=== PATIENT | male | born 1960 | race Caucasian/White ===

== ENCOUNTER → 2017-01-12 | Outpatient (CLI) | payer BC ==
[~2017-01-12] MED LIST: CITA40TA4 PO; CYM60 PO; GABA1CAP5 PO; HYDR-5688 PO; HYDR25TA5 PO; LEVO88TA PO; LEVO88TA22 PO; LISI10TA PO; LSN20 PO; LYR100 PO; MULT-506 PO; PANT40TA PO; RANI300T2 PO; ZLF/100 PO
[2017-01-12 14:09] LABS: LYME DISEASE AB IGG NEG (NEG)
[2017-01-12 14:10] LABS: LYME DISEASE AB IGM POS (NEG)
[2017-01-18 11:07] LABS: 18KDIGG BAND NONREACTIVE (NONREACTIVE); 23KDIGG BAND REACTIVE (NONREACTIVE); 23KDIGM BAND REACTIVE (NONREACTIVE); 28KDIGG BAND NONREACTIVE (NONREACTIVE); 30KDIGG BAND REACTIVE (NONREACTIVE); 39KDIGG BAND REACTIVE (NONREACTIVE); 39KDIGM BAND NONREACTIVE (NONREACTIVE); 41KDIGG BAND REACTIVE (NONREACTIVE); 41KDIGM BAND NONREACTIVE (NONREACTIVE); 45KDIGG BAND REACTIVE (NONREACTIVE); 58KDIGG BAND REACTIVE (NONREACTIVE); 66KDIGG BAND REACTIVE (NONREACTIVE); 93KDIGG BAND NONREACTIVE (NONREACTIVE)
== END | disposition home or self-care (01) ==
LOC: C.LABPBG 10:03
PROVIDERS: ATTEND Neuromusculoskeletal Medicine & OMM
DX: R53.81 Other malaise (principal); W57.XXXS Bitten or stung by nonvenomous insect and other nonvenomous arthropods, sequela

== ENCOUNTER → 2017-02-02 | Outpatient (CLI) | payer BC ==
[2017-02-02 13:21] LABS: ALT/SGPT 20 U/L (12-78); BLOOD UREA NITROGEN 23 mg/dl (7-18); BUN/CREATININE RATIO 19.2 (10-20); CALCIUM 9.2 mg/dl (8.5-10.1); CARBON DIOXIDE 25 mmol/L (21-32); CHLORIDE 104 mmol/L (98-107); GLUCOSE 141 mg/dl (70-99); POTASSIUM 4.3 mmol/L (3.5-5.1); SODIUM 138 mmol/L (136-145)
[2017-02-02 13:24] LABS: ALB/GLOB RATIO 0.8 (0.9-2); ALKALINE PHOSPHATASE 80 U/L (45-117); AST/SGOT 33 U/L (15-37)
== END | disposition home or self-care (01) ==
LOC: C.LABPBG 11:23
PROVIDERS: ATTEND Neuromusculoskeletal Medicine & OMM
DX: R53.83 Other fatigue (principal)

== ENCOUNTER 2017-04-12 18:54 | Inpatient (IN) | payer BC ==
[~2017-04-12] VITALS: Ht 180.3 cm; Wt 159.4 kg
[~2017-04-12 18:54] MED LIST changes: -CITA40TA4 PO; -CYM60 PO; -GABA1CAP5 PO; -HYDR-5688 PO; -LEVO88TA PO; -LSN20 PO; -LYR100 PO
--- NOTE | 2017-04-12 20:05 | EMERGENCY ROOM VISIT NOTE ---
History Report prepared by Belen: Maren West Under the Supervision of: Dr. Torey Ferrell M.D. First contact with patient: 19:13 Chief Complaint: MENTAL HEALTH EVALUATION Stated Complaint: VOLUNTARY PAIN FROM NECK DOWN, BURNING/SHARP History of Present Illness The patient is a 56 year old male who presents to the Emergency Room with complaints of constant suicidal ideation today. Per nursing staff, the patient was being seen by a PA-C at [facility] when he made suicidal statements and told the PA that he wanted to overdose on pain medication because a gun would be too messy. He has a history of neuropathy and chronic pain and noted that he wanted to commit suicide to end the pain. The patient has been accepted to [address] [place] [address] pending medical clearance. The patient states that he is in chronic pain from cervical nerve damage and his pain medication is not working. He notes that he had a trach in for 5 years and has a partially collapsed airway. He notes a history of Lyme disease. The patient complains of being off balance over the last few months. He reports that he takes Oxycodone for his pain and has made his 15 day bottle last 1 month. He notes that he does not like to take the Oxycodone and takes Gabapentin. Source of History: patient Onset: today Position: other (mental health) Quality: other (suicidal ideation) Timing: constant Note: Pt complains of being off balance. Review of Systems See HPI for pertinent positives & negatives. A total of 10 systems reviewed and were otherwise negative. Past Medical & Surgical Medical Problems: (1) Hyperlipidemia (2) Neuropathy Family History No pertinent family history stated. Social History Smoking Status: Never Smoker Marital Status: single Occupation Status: employed Current/Historical Medications Scheduled Citalopram (Citalopram Hydrobromide), 40 MG PO QAM Gabapentin (Neurontin), 400 MG PO TID Hydrochlorothiazide (Hydrochlorothiazide), 25 MG PO DAILY Levothyroxine Sodium (Synthroid), 88 MCG PO QAM Lisinopril (Lisinopril), 20 MG PO QAM Multivitamin (Multivitamin), 1 TAB PO DAILY Pantoprazole (Protonix), 40 MG PO DAILY Ranitidine (Zantac), 300 MG PO HS Allergies Coded Allergies: Codeine (Verified Allergy, Severe, ANAPHYLAXIS, TOLERATES PERCOCET/ MORPHINE, 04/12/17) Penicillins (Verified Allergy, Mild, RASH, 04/12/17) Physical Exam Vital Signs Date Time Temp Pulse Resp B/P (MAP) Pulse Ox O2 Delivery O2 Flow Rate FiO2 04/12/17 20:53 87 04/12/17 20:20 94 Room Air 04/12/17 20:20 94 Room Air 04/12/17 20:19 86 20 133/65 94 Room Air 04/12/17 19:05 37.0 91 19 142/75 95 Room Air Physical Exam GENERAL: Patient is a healthy-appearing well-nourished male HEAD: Normocephalic atraumatic EYES: Ocular movements intact pupils equal and react to light OROPHARYNX mucous membranes are moist no exudates present no erythema or edema present, old trach scar healed well NECK: Supple no nuchal rigidity CHEST: Good equal expansion LUNGS: Clear and equal to auscultation CARDIAC: Normal S1 and S2 ABDOMEN: Soft nontender no guarding BACK: No CVA tenderness EXTREMITIES: No pain upon palpation normal muscle strength in all groups no clubbing cyanosis or edema NEURO: Patient is following commands and answering questions appropriately. Alert and oriented x3 Cranial Nerves 2-12 grossly intact Medical Decision & Procedures ER Provider Diagnostic Interpretation: X-ray results as stated below per interpretation by me and the radiologist: CHEST ONE VIEW PORTABLE FINDINGS: Stable cardiomegaly. Diaphragms are smooth. Lungs are clear. IMPRESSION: Stable cardiomegaly. No acute process. The lungs are clear. The above report was generated using voice recognition software. It may contain grammatical, syntax or spelling errors. Electronically signed by: Andrey Sebastian M.D. 04/12/2017 8:05 PM Dictated Date/Time: 04/12/2017 8:04 PM Laboratory Results 04/12/17 20:00 Red Blood Count 4.63, Mean Corpuscular Volume 89.2, Mean Corpuscular Hemoglobin 32.0, Mean Corpuscular Hemoglobin Concent 35.8, Mean Platelet Volume 9.7, Neutrophils (%) (Auto) 61.5, Lymphocytes (%) (Auto) 27.8, Monocytes (%) (Auto) 5.7, Eosinophils (%) (Auto) 4.2, Basophils (%) (Auto) 0.6, Neutrophils # (Auto) 5.73, Lymphocytes # (Auto) 2.59, Monocytes # (Auto) 0.53, Eosinophils # (Auto) 0.39, Basophils # (Auto) 0.06 04/12/17 20:00 Test 04/12/17 19:20 04/12/17 20:00 04/12/17 20:50 Urine Color YELLOW Urine Appearance CLEAR (CLEAR) Urine pH 5.0 (4.5-7.5) Urine Specific [place] 1.016 (1.000-1.030) Urine Protein NEG (NEG) Urine Glucose (UA) NEG (NEG) Urine Ketones NEG (NEG) Urine Occult Blood NEG (NEG) Urine Nitrite NEG (NEG) Urine Bilirubin NEG (NEG) Urine Urobilinogen NEG (NEG) Urine Leukocyte Esterase NEG (NEG) Urine Opiates Screen POS (NEG) Urine Methadone, Qualitative NEG (NEG) Urine Barbiturates NEG (NEG) Urine Phencyclidine (PCP) Level NEG (NEG) Ur Amphetamine/Methamphetamine NEG (NEG) MDMA (Ecstasy) Screen NEG (NEG) Urine Benzodiazepines Screen NEG (NEG) Urine Cocaine Metabolite NEG (NEG) Urine Marijuana (THC) NEG (NEG) White Blood Count 9.32 K/uL (4.8-10.8) Red Blood Count 4.63 M/uL (4.7-6.1) Hemoglobin 14.8 g/dL (14.0-18.0) Hematocrit 41.3 % (42-52) Mean Corpuscular Volume 89.2 fL (80-100) Mean Corpuscular Hemoglobin 32.0 pg (25-34) Mean Corpuscular Hemoglobin Concent 35.8 g/dl (32-36) Platelet Count 341 K/uL (130-400) Mean Platelet Volume 9.7 fL (7.4-10.4) Neutrophils (%) (Auto) 61.5 % Lymphocytes (%) (Auto) 27.8 % Monocytes (%) (Auto) 5.7 % Eosinophils (%) (Auto) 4.2 % Basophils (%) (Auto) 0.6 % Neutrophils # (Auto) 5.73 K/uL (1.4-6.5) Lymphocytes # (Auto) 2.59 K/uL (1.2-3.4) Monocytes # (Auto) 0.53 K/uL (0.11-0.59) Eosinophils # (Auto) 0.39 K/uL (0-0.5) Basophils # (Auto) 0.06 K/uL (0-0.2) RDW Standard Deviation 40.9 fL (36.4-46.3) RDW Coefficient of Variation 12.8 % (11.5-14.5) Immature Granulocyte % (Auto) 0.2 % Immature Granulocyte # (Auto) 0.02 K/uL (0.00-0.02) Anion Gap 7.0 mmol/L (3-11) Est Creatinine Clear Calc Drug Dose 98.9 ml/min Estimated GFR () 71.2 Estimated GFR (Non- 61.4 BUN/Creatinine Ratio 16.7 (10-20) Calcium Level 9.2 mg/dl (8.5-10.1) Total Bilirubin 1.2 mg/dl (0.2-1) Direct Bilirubin 0.2 mg/dl (0-0.2) Aspartate Amino Transf (AST/SGOT) 34 U/L (15-37) Alanine Aminotransferase (ALT/SGPT) 19 U/L (12-78) Alkaline Phosphatase 84 U/L (45-117) Total Creatine Kinase 144 U/L (39-308) Creatine Kinase MB 3.4 ng/ml (0.5-3.6) Creatine Kinase MB Ratio 2.4 (0-3.0) Troponin I < 0.015 ng/ml (0-0.045) Total Protein 8.4 gm/dl (6.4-8.2) Albumin 3.8 gm/dl (3.4-5.0) Lipase 166 U/L (73-393) Thyroid Stimulating Hormone (TSH) 4.170 uIu/ml (0.300-4.500) Ethyl Alcohol mg/dL < 3.0 mg/dl (0-3) Bedside Glucose 166 mg/dl (70-99) Labs reviewed by ED physician. ECG Indication: other Rate (beats per minute): 86 Rhythm: sinus rhythm Findings: no acute ischemic change, no ectopy ED Course 1912: Past medical records reviewed. The patient was evaluated in room A7. A complete history and physical examination was performed. 2111: The patient will be further evaluated in [address] [place] [address] for psychiatric management. Medical Decision Differential diagnosis: Etiologies such as mood disorder, infection, hypoglycemia, electrolyte abnormalities, cardiac sources, intracerebral event, toxicologic, neurologic, as well as others were entertained. This is a 56-year-old male who presents emergency department complaining of suicidal ideation. The patient suffers from chronic pain issues and threatened to take his medication to kill himself today. He does not have any current complaints. Due to the nature the patient's past medical history I did obtain a chest x-ray as well as EKG CK-MB troponin. His a normal CBC normal renal profile. He is medically clear from acute medical issue standpoint. I did discuss the case with the 3 S. liaison who agreed to admit the patient. Medication Reconcilliation Current Medication List: was personally reviewed by me Blood Pressure Screening Patient's blood pressure: Elevated blood pressure Blood pressure disposition: Elevated BP felt to be situational Impression Primary Impression: Mood disorder Scribe Attestation The scribe's documentation has been prepared under my direction and personally reviewed by me in its entirety. I confirm that the note above accurately reflects all work, treatment, procedures, and medical decision making performed by me. Departure Information Dispostion Mental Health Acute Care Referrals No Doctor, Assigned (PCP) Patient Instructions [facility]
[2017-04-12 20:06] LABS: URINE APPEARANCE CLEAR (CLEAR); URINE BILIRUBIN NEG (NEG); URINE COLOR YELLOW; URINE NITRITE NEG (NEG); URINE SPECIFIC GRAVITY 1.016 (1.000-1.030); UROBILINOGEN NEG (NEG)
--- NOTE | 2017-04-12 20:06 | DIAGNOSTIC IMAGING REPORT ---
CHEST ONE VIEW PORTABLE CLINICAL HISTORY: CHEST PAIN pain COMPARISON STUDY: 05/30/2014 FINDINGS: Stable cardiomegaly. Diaphragms are smooth. Lungs are clear. IMPRESSION: Stable cardiomegaly. No acute process. The lungs are clear. The above report was generated using voice recognition software. It may contain grammatical, syntax or spelling errors. Electronically signed by: Andrey Sebastian M.D. 04/12/2017 8:05 PM Dictated Date/Time: 04/12/2017 8:04 PM
[2017-04-12 20:15] LABS: BASO % 0.6 %; BASO ABS # 0.06 K/uL (0-0.2); COMPLETE YES; EOS % 4.2 %; HEMATOCRIT 41.3 % (42-52); IG% 0.2 %; LYMPH % 27.8 %; LYMPH ABS # 2.59 K/uL (1.2-3.4); MEAN CELL VOLUME 89.2 fL (80-100); MEAN CORPUSCULAR HGB CONC 35.8 g/dl (32-36); MEAN PLATELET VOLUME 9.7 fL (7.4-10.4); MONO % 5.7 %; NEUT % 61.5 %; PLATELET COUNT 341 K/uL (130-400); RED BLOOD COUNT 4.63 M/uL (4.7-6.1); WHITE BLOOD COUNT 9.32 K/uL (4.8-10.8)
[2017-04-12 20:20] VITALS: O2SAT 94
[2017-04-12 20:28] LABS: MANUAL MICROSCOPIC REQUIRED? NO; REVIEW REQ? NO
[2017-04-12 20:39] LABS: BLOOD UREA NITROGEN 22 mg/dl (7-18); GLUCOSE 174 mg/dl (70-99)
[2017-04-12 20:40] LABS: ALT/SGPT 19 U/L (12-78); BUN/CREATININE RATIO 16.7 (10-20); CALCIUM 9.2 mg/dl (8.5-10.1); CARBON DIOXIDE 25 mmol/L (21-32); CHLORIDE 103 mmol/L (98-107); POTASSIUM 3.6 mmol/L (3.5-5.1); SODIUM 135 mmol/L (136-145)
[2017-04-12] MEDS ORDERED: GABA1CAP5 PO (20:41)
[2017-04-12] MEDS ORDERED: LSN20 PO (20:41)
[2017-04-12] MEDS ORDERED: LEVO88TA PO (20:41)
[2017-04-12] MEDS ORDERED: CITA40TA4 PO (20:41)
[2017-04-12 20:47] LABS: BENZODIAZEPINE, URINE NEG (NEG); COCAINE,URINE NEG (NEG); PHENCYCLIDINE, URINE NEG (NEG)
[2017-04-12 20:50] LABS: ALKALINE PHOSPHATASE 84 U/L (45-117); AST/SGOT 34 U/L (15-37); CKMB/CK RATIO 2.4 (0-3.0)
[2017-04-12] MEDS ORDERED: MAGNESIUM HYDROXIDE SUSP 30 ML UDC PO PRN (21:30)
[2017-04-12] MEDS ORDERED: SODIUM CHLORIDE 0.65% NA SOLN 45 ML (OCEAN) PRN (21:30)
[2017-04-12] MEDS ORDERED: ALUMINUM/MAGNESIUM SUSP 30 ML UDC PO PRN (21:30)
[2017-04-12] MEDS ORDERED: BISMUTH SUBSALICYLATE PER ML OMNICELL CHARGE PO PRN (21:30)
[2017-04-12] MEDS ORDERED: hydrOXYzine HCL 25 MG TAB PO PRN ×2 (21:30)
[2017-04-12 21:40] VITALS: BP 130/54; PULSE 64; TEMP 37; Ht 180.3 cm; Wt 159.4 kg
[2017-04-12] MEDS ORDERED: NURSING VERBAL MED ORDER ONE (23:15)
[2017-04-12 23:20] VITALS: PULSE 77; O2SAT 98
[2017-04-12] MEDS ORDERED: CYCLOBENZAPRINE HCL 10 MG TAB PO PRN (23:30)
[2017-04-13] MEDS: HYDROCODONE/ACETAMOPHEN 5/325MG TAB PO PRN (00:01)
[2017-04-13] MEDS: GABAPENTIN 400 MG CAP PO SCH ×3 (00:02→21:20)
[2017-04-13 06:50] VITALS: BP_SYST 116; BP_SYST 126; BP_DIAS 74; BP_DIAS 84; PULSE 102; PULSE 94; TEMP 36.6
[2017-04-13] MEDS ORDERED: CITALOPRAM 40 MG TAB PO SCH (09:00)
[2017-04-13] MEDS: LISINOPRIL 20 MG TAB PO SCH (09:12)
[2017-04-13] MEDS: MULTIVITAMIN TAB PO SCH (09:12)
[2017-04-13] MEDS: PANTOprazole SOD 40 MG TAB PO SCH (09:12)
[2017-04-13] MEDS: HYDROCHLOROTHIAZIDE 25 MG TAB PO SCH (09:12)
[2017-04-13] MEDS: LEVOTHYROXINE 88 MCG TAB PO SCH (09:12)
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
[2017-04-13] MEDS ORDERED: HYDR-5688 PO (12:11)
[2017-04-13] MEDS: PREGABALIN 75 MG CAP PO SCH (21:20)
[2017-04-13] MEDS: RANITIDINE HCL 150 MG TAB PO SCH (21:20)
[2017-04-14 06:50] VITALS: BP_SYST 118; BP_SYST 125; BP_DIAS 67; BP_DIAS 76; PULSE 54; PULSE 68; TEMP 36.4
[2017-04-14] MEDS: LEVOTHYROXINE 88 MCG TAB PO SCH (09:02)
[2017-04-14] MEDS: HYDROCHLOROTHIAZIDE 25 MG TAB PO SCH (09:24)
[2017-04-14] MEDS: PREGABALIN 75 MG CAP PO SCH ×2 (09:24→21:16)
[2017-04-14] MEDS: MULTIVITAMIN TAB PO SCH (09:24)
[2017-04-14] MEDS: DULOXETINE (CYMBALTA) 30 MG CAP PO SCH (09:24)
[2017-04-14] MEDS: GABAPENTIN 400 MG CAP PO SCH ×2 (09:24→21:16)
[2017-04-14] MEDS: LISINOPRIL 20 MG TAB PO SCH (09:25)
[2017-04-14] MEDS: PANTOprazole SOD 40 MG TAB PO SCH (11:35)
[2017-04-14] MEDS: HYDROCODONE/ACETAMOPHEN 5/325MG TAB PO PRN (16:18)
--- NOTE | 2017-04-14 16:27 | Psychiatric Progress Notes ---
Progress Note Date of Service Apr 14, 2017. Interval History Patient is a 56-year-old gentleman with a history of chronic pain which has been difficult to manage. He also has a history of Lyme disease contributing to his neuropathy. His pain has been worsening and is inadequately controlled he was seen at his primary care provider 0n 04/12 and revealed that he was considering overdosing on his medications. He was seen for mental health evaluation in the emergency room and admitted as he was at risk of harm to himself. Patient's medications are being adjusted with cross taper from gabapentin to Lyrica. Celexa was replaced with cymbalta. Chief Complaint "being here helps". Subjective Patient was seen & assessed interval progress reviewed with treatment team. Patient is cooperative and pleasant. He is participating in groups and interacting with peers. He relates that he feels better when he is around people. Last evening he continued to express hopelessness and helplessness and was unable to contract for safety. Today on interview in the afternoon his mood has improved he reports no suicidal thoughts he is reluctant to say that he would be safe outside the hospital. He is thinking of going to live with his nephew in [place]. He denies any problems with his medications with the cross taper from gabapentin to Lyrica and starting Cymbalta. His dogs are being taken care of by a relative. He reports that his dogs are a big comfort to him and they would be a reason for him not to harm himself. The patient continues to struggle with chronic pain and has been receiving when necessary for some modest relief. Review of Systems Musculoskeletal: + problem reported (pain from neck to toes. ) Sleep Information Total Hours of Sleep: 6.25 Meal Information Percent of Breakfast Consumed: 100 Percent of Lunch Consumed: 100 Percent of Dinner Consumed: 100 Mental Status Exam During interview pt is: alert and oriented, cooperative Appearance: appropriately dressed, appropriately groomed, other (obese) Motor behavior is: no abnormal motor movements, other (walks with cane) Speech: normal in rate, rhythm & volume Affect: other (normal) Mood is: depressed, other (frustrated) Thought process: goal directed, linear, logical, clear, coherent, circumstantial Thought content: reality based without delusions Suicidal thought are: present, Plan: denied, Intent: denied Homicidal thoughts are: denied Hallucinations: denies auditory, denies visual Cognition: memory grossly intact, attention grossly intact Intelligence estimated to be: average Insight: fair Judgement: fair Impression Patient is a 56-year-old gentleman with a history of chronic pain which has been difficult to manage. He also has a history of Lyme disease contributing to his neuropathy. His pain has been worsening and is inadequately controlled he was seen at his primary care provider yesterday and revealed that he was considering overdosing on his medications. He was seen for mental health evaluation in the emergency room and admitted as he was at risk of harm to himself. Continued inpatient hospitalization is medically necessary for ongoing monitoring and safety. Plan (1) Depressive disorder due to separate medical condition 04/13 Patient is admitted to a locked unit with every 15 minute safety checks. Patient does not remember his past medical medication history. He does not believe that the Celexa is working. Patient agrees to trial of SNRI Cymbalta reviewed the risks benefits and alternatives patient accepted. Will discontinue Celexa and start patient on Cymbalta. Staff checked with him on his co-pay which is of concern. His co-pay for this medication is $10 per month. Encourage patient to participate in group and individual therapy Patient has very little social support. He does have a friend with whom he used to work. Unclear if this person would be appropriate for family meeting. Would be helpful to verify with ericon that patient's guns have been adequately secured. 04/14 tolerating med changes. continue cymbalta 30 mg today and would consider titration is continues to tolerate. (2) Neuropathy 04/13 Discussed changing patient's gabapentin to Lyrica. Patient had ask PCP for this change however after making suicidal statement he was asked to go to the emergency room and this change was not made. Patient would like to have this change and is aware that his co-pay will be higher than for the gabapentin but he is willing to make this change. Will do a quick cross taper from gabapentin to Lyrica. Patient has his cane for ambulation. will continue hydrocodone-acetaminophen 5-325 1-2 tabs prn for pain. Patient does not seem to be misusing this medication. 04/14 - continue cross taper from gabapentin to lyrica (3) Sleep apnea Patient will use CPAP. (4) Hypertension Continue patient's home medication (5) Hyperlipidemia Continue patient's home medication Discharge / Aftercare Planning Primary Care Physician: Name: Dr. Adal Lynn in [facility] in [place] Therapist: Name: none Radiologic Technology Instructor: Name: none Visit Code E&M Code: 54134 Inventory Assets Strengths: willingness for treatment, Needs: psychiatric care, Risk Factors Assessment Male: Yes : Yes /single/: Yes Health problems: Yes Substance use disorders: No Previous attempt: No Family history of suicide: No Previous psychiatric stay: No Hopelessness: Yes Smoker: Yes Protective Factors Assessment : No Responsible for young children: No Employed: No Stable relationships: No Supportive family: No Data Vital Signs Last 24 Hrs: Date Time Temp Pulse Resp B/P (MAP) Pulse Ox O2 Delivery O2 Flow Rate FiO2 04/14/17 06:50 36.4 54 16 125/67 68 118/76 Meds Administered Last 24 Hrs: Current Inpatient Medications Medications (Trade) Dose Ordered Sig/Flora Route Start Time Stop Time Status Last Admin Dose Admin Acetaminophen (Tylenol Tab) 650 mg Q4H PRN PO 04/12/17 21:30 05/12/17 21:29 Bismuth Subsalicylate (Kaopectate Liqd) 15 ml PRN PRN PO 04/12/17 21:30 05/12/17 21:29 Al Hydroxide/Mg Hydroxide (Maalox Susp) 30 ml Q4H PRN PO 04/12/17 21:30 05/12/17 21:29 Magnesium Hydroxide (Milk Of Magnesia Susp) 30 ml DAILY PRN PO 04/12/17 21:30 05/12/17 21:29 Sodium Chloride ([place]) PRN PRN NA 04/12/17 21:30 05/12/17 21:29 Hydroxyzine HCl (Vistaril Tab) 50 mg HSZ PRN PO 04/12/17 21:30 05/12/17 21:29 Hydroxyzine HCl (Vistaril Tab) 25 mg Q4H PRN PO 04/12/17 21:30 05/12/17 21:29 Hydrochlorothiazide (Hydrochlorothiazide Tab) 25 mg DAILY PO 04/13/17 09:00 05/13/17 08:59 04/14/17 09:24 25 MG Levothyroxine Sodium (Synthroid Tab) 88 mcg DAILYBB PO 04/13/17 08:00 05/13/17 07:59 04/14/17 09:02 88 MCG Lisinopril (Zestril Tab) 20 mg QAM PO 04/13/17 09:00 05/13/17 08:59 04/14/17 09:25 20 MG Multivitamins (Multivitamin Tab) 1 tab DAILY PO 04/13/17 09:00 05/13/17 08:59 04/14/17 09:24 1 TAB Pantoprazole Sodium (Protonix Tab) 40 mg DAILY PO 04/13/17 09:00 05/13/17 08:59 04/14/17 11:35 40 MG Ranitidine HCl (zANTac TAB) 300 mg HS PO 04/13/17 22:00 05/13/17 21:59 04/13/17 21:20 300 MG Acetaminophen/ Hydrocodone Bitart ([place] 5/325 Tab) 1 tab TID PRN PO 04/12/17 23:30 04/26/17 23:29 04/13/17 00:01 1 TAB Cyclobenzaprine HCl (Flexeril Tab) 10 mg HS PRN PO 04/12/17 23:30 05/12/17 23:29 04/13/17 00:02 10 MG Gabapentin (Neurontin Cap) 400 mg Taper BID PO 04/13/17 22:00 04/17/17 21:59 04/14/17 09:24 400 MG Pregabalin (Lyrica Cap) 75 mg BID PO 04/13/17 22:00 05/13/17 21:59 04/14/17 09:24 75 MG Duloxetine HCl (Cymbalta Cap) 30 mg QAM PO 04/14/17 09:00 05/14/17 08:59 04/14/17 09:24 30 MG
[2017-04-14] MEDS: RANITIDINE HCL 150 MG TAB PO SCH (21:16)
[2017-04-15 06:47] VITALS: BP_SYST 125; BP_SYST 91; BP_DIAS 57; BP_DIAS 64; PULSE 55; PULSE 85; TEMP 37.1
[2017-04-15] MEDS: LEVOTHYROXINE 88 MCG TAB PO SCH (08:45)
[2017-04-15] MEDS: DULOXETINE (CYMBALTA) 30 MG CAP PO SCH (08:45)
[2017-04-15] MEDS: GABAPENTIN 400 MG CAP PO SCH (08:48)
[2017-04-15] MEDS: PREGABALIN 75 MG CAP PO SCH ×2 (08:48→21:35)
[2017-04-15] MEDS: PANTOprazole SOD 40 MG TAB PO SCH (08:48)
[2017-04-15] MEDS: MULTIVITAMIN TAB PO SCH (08:48)
[2017-04-15] MEDS: HYDROCHLOROTHIAZIDE 25 MG TAB PO SCH (08:48)
[2017-04-15] MEDS: LISINOPRIL 20 MG TAB PO SCH (08:49)
[2017-04-15 08:50] VITALS: BP 132/83; PULSE 76
--- NOTE | 2017-04-15 14:02 | Psychiatric Progress Notes ---
Progress Note Date of Service Apr 15, 2017. Interval History Patient is a 56-year-old gentleman with a history of chronic pain which has been difficult to manage. He also has a history of Lyme disease contributing to his neuropathy. His pain has been worsening and is inadequately controlled he was seen at his primary care provider 0n 04/12 and revealed that he was considering overdosing on his medications. He was seen for mental health evaluation in the emergency room and admitted as he was at risk of harm to himself. Patient's medications are being adjusted with cross taper from gabapentin to Lyrica. Celexa was replaced with cymbalta. Chief Complaint "I'm in pain". Subjective Patient was seen & assessed interval progress reviewed with Nursing staff. Patient continues to struggle wtih pain. He has expressed SI and hopelessness to staff, He reports that he may consider living with his nephew in [place] after discharge. Patient stated he is "in pain, 10/10, never less than a 10/10" Radiates from his neck up over his head and also from neck down his back all the way to his feet He reports that his CPAP mask here is ill fitting and that interferes with his sleep. He feels that his head is a little clearer as he lowers the gabapentin and starts the lyrica "I felt like I was on something....unsteady for several months " He shares that is mood is "down....none of this is going to get better" However he denies over SI to this provider at this moment, but has had it intermittently through the day today, denies intention on the unit. "It is hard to have hope." He feels depressed He denies SE to the cymbalta or lyrica that he is aware of. 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 Review of Systems pain as noted above, ill fitting cpap mask interfering with sleep o/w denies Sleep Information Total Hours of Sleep: 6.00 Meal Information Percent of Breakfast Consumed: 100 Percent of Lunch Consumed: 100 Percent of Dinner Consumed: 100 Mental Status Exam During interview pt is: alert and oriented, cooperative Appearance: appropriately dressed, appropriately groomed, other (obese) Motor behavior is: no abnormal motor movements, other (walks with cane) Speech: normal in rate, rhythm & volume Affect: other (normal) Mood is: depressed Thought process: goal directed, linear, logical, clear, coherent, circumstantial (he is redirectable but likes to tell stories about his past) Thought content: reality based without delusions Suicidal thought are: present, Plan: denied, Intent: denied Homicidal thoughts are: denied Hallucinations: denies auditory, denies visual Cognition: memory grossly intact, attention grossly intact Intelligence estimated to be: average Insight: fair Judgement: fair Impression Patient is a 56-year-old gentleman with a history of chronic pain which has been difficult to manage. He also has a history of Lyme disease contributing to his neuropathy. His pain has been worsening and is inadequately controlled he was seen at his primary care provider yesterday and revealed that he was considering overdosing on his medications. He was seen for mental health evaluation in the emergency room and admitted as he was at risk of harm to himself. Continued inpatient hospitalization is medically necessary for ongoing monitoring and safety. Plan (1) Depressive disorder due to separate medical condition 04/13 Patient is admitted to a locked unit with every 15 minute safety checks. Patient does not remember his past medical medication history. He does not believe that the Celexa is working. Patient agrees to trial of SNRI Cymbalta reviewed the risks benefits and alternatives patient accepted. Will discontinue Celexa and start patient on Cymbalta. Staff checked with him on his co-pay which is of concern. His co-pay for this medication is $10 per month. Encourage patient to participate in group and individual therapy Patient has very little social support. He does have a friend with whom he used to work. Unclear if this person would be appropriate for family meeting. Would be helpful to verify with guru that patient's guns have been adequately secured. 04/14 tolerating med changes. continue cymbalta 30 mg today and would consider titration is continues to tolerate. 04/15 increase to 60mg/d cymbalta (2) Neuropathy 04/13 Discussed changing patient's gabapentin to Lyrica. Patient had ask PCP for this change however after making suicidal statement he was asked to go to the emergency room and this change was not made. Patient would like to have this change and is aware that his co-pay will be higher than for the gabapentin but he is willing to make this change. Will do a quick cross taper from gabapentin to Lyrica. Patient has his cane for ambulation. will continue hydrocodone-acetaminophen 5-325 1-2 tabs prn for pain. Patient does not seem to be misusing this medication. 04/14 - continue cross taper from gabapentin to lyrica to 75mg po bid, and gabapentin down to 400mg po bid 04/15 no changes, likely increase to lyrica 75/100 tomorrow 04/16 and 100mg po bid on Tuesday 04/17 (3) Sleep apnea Patient will use CPAP. (4) Hypertension Continue patient's home medication (5) Hyperlipidemia Continue patient's home medication Discharge / Aftercare Planning Primary Care Physician: Name: [place] Adal [place] [facility] [place] Therapist: Name: none Automotive Heavy Mechanic: Name: none Visit Code E&M Code: 08583 Inventory Assets Strengths: willingness for treatment, Needs: psychiatric care, Risk Factors Assessment Male: Yes : Yes /single/: Yes Health problems: Yes Substance use disorders: No Previous attempt: No Family history of suicide: No Previous psychiatric stay: No Hopelessness: Yes Smoker: Yes Protective Factors Assessment : No Responsible for young children: No Employed: No Stable relationships: No Supportive family: No Data Vital Signs Last 24 Hrs: Date Time Temp Pulse Resp B/P (MAP) Pulse Ox O2 Delivery O2 Flow Rate FiO2 04/15/17 08:50 76 16 132/83 04/15/17 06:47 37.1 55 16 125/64 85 91/57 Meds Administered Last 24 Hrs: Meds Administered (Past 24Hrs) Medications (Trade) Dose Ordered Sig/Flora Route Start Time Stop Time Status Last Admin Dose Admin Ranitidine HCl (zANTac TAB) 300 mg HS PO 04/13/17 22:00 05/13/17 21:59 04/14/17 21:16 300 MG Gabapentin (Neurontin Cap) 400 mg Taper BID PO 04/13/17 22:00 04/17/17 21:59 04/15/17 08:48 400 MG Pregabalin (Lyrica Cap) 75 mg BID PO 04/13/17 22:00 05/13/17 21:59 04/15/17 08:48 75 MG Duloxetine HCl (Cymbalta Cap) 30 mg QAM PO 04/14/17 09:00 04/15/17 13:48 DC 04/15/17 08:45 30 MG
[2017-04-15] MEDS: ACETAMINOPHEN 325 MG TAB PO PRN (15:42)
[2017-04-15] MEDS: RANITIDINE HCL 150 MG TAB PO SCH (21:36)
[2017-04-15] MEDS: GABAPENTIN 100 MG CAP PO SCH (21:36)
[2017-04-16 06:54] VITALS: BP_SYST 100; BP_SYST 113; BP_DIAS 63; BP_DIAS 77; PULSE 76; PULSE 79; TEMP 36.8
[2017-04-16] MEDS: LEVOTHYROXINE 88 MCG TAB PO SCH (08:20)
[2017-04-16] MEDS: DULOXETINE HCL 60 MG CAP PO SCH (08:22)
[2017-04-16] MEDS: HYDROCHLOROTHIAZIDE 25 MG TAB PO SCH (08:22)
[2017-04-16] MEDS: GABAPENTIN 100 MG CAP PO SCH ×2 (08:23→21:19)
[2017-04-16] MEDS: MULTIVITAMIN TAB PO SCH (08:23)
[2017-04-16] MEDS: PREGABALIN 75 MG CAP PO SCH (08:23)
[2017-04-16] MEDS: LISINOPRIL 20 MG TAB PO SCH (08:24)
[2017-04-16] MEDS: HYDROCODONE/ACETAMOPHEN 5/325MG TAB PO PRN (08:33)
[2017-04-16] MEDS: PANTOprazole SOD 40 MG TAB PO SCH (10:25)
--- NOTE | 2017-04-16 12:43 | Psychiatric Progress Notes ---
Progress Note Date of Service Apr 16, 2017. Interval History Patient is a 56-year-old gentleman with a history of chronic pain which has been difficult to manage. He also has a history of Lyme disease contributing to his neuropathy. His pain has been worsening and is inadequately controlled he was seen at his primary care provider 0n 04/12 and revealed that he was considering overdosing on his medications. He was seen for mental health evaluation in the emergency room and admitted as he was at risk of harm to himself. Patient's medications are being adjusted with cross taper from gabapentin to Lyrica. Celexa was replaced with cymbalta. Chief Complaint "I am starting feel a bit better". Subjective Patient was seen & assessed interval progress reviewed with Nursing He lays down in the day to nap with CPAP. He sits in dayroom playing Spor and attends groups. He continued through 04/15 expressing SI. Met with patient today he is tired and in pain, but states "I feel a bit better , not so cloudy, I felt like I was on something" and suspects the gabapentin was causing concerns. He continues to tolerate taper and denies SE from lyrica addition nor from cymbalta addition today at 60mg/d Mood is "better, but I am still in pain, I am still tired" He denies suicidal ideation, [place] that I am being robbed blind while I am here" He denies anxiety otherwise. He shares he continues to plan to go to [place] to live with his nephew and will take care of their 2yo son while his [id number] moves to daytime hours. He is motivated to connect with the [facility] to use their pool in [facility] as he found some modest benefits when he was swimming last year daily while in [place]. He hopes to eventually start riding the stationary bike again as well, and to get his CPAP interrogated and his airway re-evaluated. He feels that he is less hopeless about living with chronic pain although notes it is still a drag on him. He denies physical concerns at this time other than the pain in his neck up into occiput, and down his back to his toes. Review of Systems denies other concerns than noted above Sleep Information Total Hours of Sleep: 4.50 Meal Information Percent of Breakfast Consumed: 100 Percent of Lunch Consumed: 100 Percent of Dinner Consumed: 100 Mental Status Exam During interview pt is: alert and oriented, cooperative Appearance: appropriately dressed, appropriately groomed, other (obese) Motor behavior is: no abnormal motor movements, other (walks with cane) Speech: normal in rate, rhythm & volume Affect: other (normal) Mood is: other ("a little better") Thought process: goal directed, linear, logical, clear, coherent, circumstantial (he is redirectable but likes to tell stories about his past) Thought content: reality based without delusions Suicidal thought are: denied, Plan: denied, Intent: denied Homicidal thoughts are: denied Hallucinations: denies auditory, denies visual Cognition: memory grossly intact, attention grossly intact Intelligence estimated to be: average Insight: fair Judgement: fair Impression Patient is a 56-year-old gentleman with a history of chronic pain which has been difficult to manage. He also has a history of Lyme disease contributing to his neuropathy. His pain has been worsening and is inadequately controlled he was seen at his primary care provider yesterday and revealed that he was considering overdosing on his medications. He was seen for mental health evaluation in the emergency room and admitted as he was at risk of harm to himself. Continued inpatient hospitalization is medically necessary for ongoing monitoring and safety. Plan (1) Depressive disorder due to separate medical condition 04/13 Patient is admitted to a locked unit with every 15 minute safety checks. Patient does not remember his past medical medication history. He does not believe that the Celexa is working. Patient agrees to trial of SNRI Cymbalta reviewed the risks benefits and alternatives patient accepted. Will discontinue Celexa and start patient on Cymbalta. Staff checked with him on his co-pay which is of concern. His co-pay for this medication is $10 per month. Encourage patient to participate in group and individual therapy Patient has very little social support. He does have a friend with whom he used to work. Unclear if this person would be appropriate for family meeting. Would be helpful to verify with guru that patient's guns have been adequately secured. 04/14 tolerating med changes. continue cymbalta 30 mg today and would consider titration is continues to tolerate. 04/15 increase to 60mg/d cymbalta first dose will occur on 04/16/17 04/16/17 - no side effects to date continue cymbalta 60mg/d, discussed exercise ( see below under neuropathy) as well as interpersonal connections and how they can help support wellbeing (2) Neuropathy 04/13 Discussed changing patient's gabapentin to Lyrica. Patient had ask PCP for this change however after making suicidal statement he was asked to go to the emergency room and this change was not made. Patient would like to have this change and is aware that his co-pay will be higher than for the gabapentin but he is willing to make this change. Will do a quick cross taper from gabapentin to Lyrica. Patient has his cane for ambulation. will continue hydrocodone-acetaminophen 5-325 1-2 tabs prn for pain. Patient does not seem to be misusing this medication. 04/14 - continue cross taper from gabapentin to lyrica to 75mg po bid, and gabapentin down to 400mg po bid 04/15 no changes, 04/16 he is at gabapentin 200mg po bid, will increase lyrica for Monday from 75mg po bid to 100mg po bid Discussed paced exercise, and use of modalities such as massage, PT to help design appropriate exercise paced regimen Discussed use of water for relief, and also for paced exercise with goal to help stamina, and weight and to help him have meaning in setting and meeting some goals (3) Sleep apnea Patient will use CPAP. (4) Hypertension Continue patient's home medication (5) Hyperlipidemia Continue patient's home medication Discharge / Aftercare Planning Primary Care Physician: Name: Dr. Adal Lynn in [facility] in [place] Therapist: Name: none Provider Relations Advocate: Name: none Visit Code E&M Code: 45938 Inventory Assets Strengths: willingness for treatment, Needs: psychiatric care, Risk Factors Assessment Male: Yes : Yes /single/: Yes Health problems: Yes Substance use disorders: No Previous attempt: No Family history of suicide: No Previous psychiatric stay: No Hopelessness: Yes Smoker: Yes Protective Factors Assessment : No Responsible for young children: No Employed: No Stable relationships: No Supportive family: No Data Vital Signs Last 24 Hrs: Date Time Temp Pulse Resp B/P (MAP) Pulse Ox O2 Delivery O2 Flow Rate FiO2 04/16/17 06:54 36.8 79 16 100/63 76 113/77 04/15/17 08:50 76 16 132/83 Meds Administered Last 24 Hrs: Meds Administered (Past 24Hrs) Medications (Trade) Dose Ordered Sig/Flora Route Start Time Stop Time Status Last Admin Dose Admin Duloxetine HCl (Cymbalta Cap) 30 mg QAM PO 04/14/17 09:00 04/15/17 13:48 DC 04/15/17 08:45 30 MG Gabapentin (Neurontin Cap) 200 mg BID PO 04/15/17 22:00 04/17/17 21:59 04/15/17 21:36 200 MG
[2017-04-16] MEDS: ACETAMINOPHEN 325 MG TAB PO PRN (18:16)
[2017-04-16] MEDS: RANITIDINE HCL 150 MG TAB PO SCH (21:19)
[2017-04-16] MEDS ORDERED: PREGABALIN 75 MG CAP PO ONE (22:00)
[2017-04-17 07:09] VITALS: BP_SYST 139; BP_SYST 156; BP_DIAS 76; BP_DIAS 80; PULSE 62; PULSE 66; TEMP 36.9
[2017-04-17] MEDS: LEVOTHYROXINE 88 MCG TAB PO SCH (07:50)
[2017-04-17] MEDS: HYDROCODONE/ACETAMOPHEN 5/325MG TAB PO PRN ×2 (07:51→21:38)
[2017-04-17 07:58] LABS: COD UR NEGATIVE NG/ML (CUTOFF=50); HYDROCOD UR 151 NG/ML (CUTOFF=50); HYDROMOR UR NEGATIVE NG/ML (CUTOFF=50); MORPHINE UR NEGATIVE NG/ML (CUTOFF=50); NORHYDROCODONE CONF UR 152 NG/ML (CUTOFF=50); OXYMORPH UR NEGATIVE NG/ML (CUTOFF=50)
[2017-04-17] MEDS: HYDROCHLOROTHIAZIDE 25 MG TAB PO SCH (09:12)
[2017-04-17] MEDS: DULOXETINE HCL 60 MG CAP PO SCH (09:12)
[2017-04-17] MEDS: GABAPENTIN 100 MG CAP PO SCH (09:13)
[2017-04-17] MEDS: PANTOprazole SOD 40 MG TAB PO SCH (09:13)
[2017-04-17] MEDS: LISINOPRIL 20 MG TAB PO SCH (09:13)
[2017-04-17] MEDS: MULTIVITAMIN TAB PO SCH (09:13)
[2017-04-17] MEDS: PREGABALIN 100 MG CAP PO SCH ×2 (09:13→21:34)
--- NOTE | 2017-04-17 12:00 | Psychiatric Progress Notes ---
Progress Note Date of Service Apr 17, 2017. Interval History Patient is a 56-year-old gentleman with a history of chronic pain which has been difficult to manage. He also has a history of Lyme disease contributing to his neuropathy. His pain has been worsening and is inadequately controlled he was seen at his primary care provider 0n 04/12 and revealed that he was considering overdosing on his medications. He was seen for mental health evaluation in the emergency room and admitted as he was at risk of harm to himself. Patient's medications are being adjusted with cross taper from gabapentin to Lyrica. Celexa was replaced with cymbalta. Chief Complaint "The constant pain was just terrible". Subjective Patient was seen & assessed interval progress reviewed with Treatment Team. Staff report he has been attending groups, and seems to enjoy interacting with others. He continues to wear hospital gowns instead of street clothes, and reports multiple somatic symptoms, including "feeling feverish from Lyme's." In community meeting, he said his goal was to get pain meds, and rated his mood a 3 out of 10. He told staff this morning that he was having a bad start his day. He says he is planning to move to [place] to live with a nephew, and will need aftercare in that area. Today, he says that his mood has improved, which he attributes to improved physical symptoms. He is tolerating the medication changes well, and feels they are helping. He talks about his many physical issues, fatigue, and limitations to what he can do because of this. He feels it has been very helpful to be on the inpatient unit, but is not sure how his days can be better structured outside of the hospital. He is planning to move to [place] to live with his nephew by the end of April, and is willing to have aftercare set up there. He is aware he will need to see his PCP in the interim for medication management. He is feeling more hopeful for the future, and denies suicidal thoughts. Sleep Information Total Hours of Sleep: 7.00 Meal Information Percent of Breakfast Consumed: 100 Percent of Lunch Consumed: 100 Percent of Dinner Consumed: 100 Mental Status Exam During interview pt is: alert and oriented, cooperative Appearance: appropriately dressed, appropriately groomed, other (obese) Eye contact is: good Motor behavior is: no abnormal motor movements, other (walks with cane) Speech: normal in rate, rhythm & volume Affect: euthymic Mood is: other ("better") Thought process: goal directed, linear, logical, clear, coherent, circumstantial Thought content: reality based without delusions Suicidal thought are: denied Homicidal thoughts are: denied Hallucinations: denies auditory, denies visual Cognition: memory grossly intact, attention grossly intact Intelligence estimated to be: average Insight: fair Judgement: fair Impression Patient is a 56-year-old gentleman with a history of chronic pain which has been difficult to manage. He also has a history of Lyme disease contributing to his neuropathy. His pain has been worsening and is inadequately controlled. He was seen at his primary care provider the day of presentation, and revealed that he was considering overdosing on his medications. He was seen for a mental health evaluation in the emergency room and admitted as he was at risk of harm to himself. Continued inpatient hospitalization is medically necessary for ongoing monitoring and safety, as he has no outpatient care and is not sure how to make the transition back home, and remains at increased risk of suicide if this is not addressed prior to discharge. Plan (1) Depressive disorder due to separate medical condition 04/13 Patient is admitted to a locked unit with every 15 minute safety checks. Patient does not remember his past medical medication history. He does not believe that the Celexa is working. Patient agrees to trial of SNRI Cymbalta reviewed the risks benefits and alternatives patient accepted. Will discontinue Celexa and start patient on Cymbalta. Staff checked with him on his co-pay which is of concern. His co-pay for this medication is $10 per month. Encourage patient to participate in group and individual therapy Patient has very little social support. He does have a friend with whom he used to work. Unclear if this person would be appropriate for family meeting. Would be helpful to verify with guru that patient's guns have been adequately secured. 04/14 tolerating med changes. continue cymbalta 30 mg today and would consider titration is continues to tolerate. 04/15 increase to 60mg/d cymbalta first dose will occur on 04/16/17 04/16/17 - no side effects to date continue cymbalta 60mg/d, discussed exercise ( see below under neuropathy) as well as interpersonal connections and how they can help support wellbeing. 04/27 - cont cymbalta 60mg daily. Arrange aftercare in [place]. (2) Neuropathy 04/13 Discussed changing patient's gabapentin to Lyrica. Patient had ask PCP for this change however after making suicidal statement he was asked to go to the emergency room and this change was not made. Patient would like to have this change and is aware that his co-pay will be higher than for the gabapentin but he is willing to make this change. Will do a quick cross taper from gabapentin to Lyrica. Patient has his cane for ambulation. will continue hydrocodone-acetaminophen 5-325 1-2 tabs prn for pain. Patient does not seem to be misusing this medication. 04/14 - continue cross taper from gabapentin to lyrica to 75mg po bid, and gabapentin down to 400mg po bid 04/15 no changes, 04/16 he is at gabapentin 200mg po bid, will increase lyrica for Monday from 75mg po bid to 100mg po bid Discussed paced exercise, and use of modalities such as massage, PT to help design appropriate exercise paced regimen Discussed use of water for relief, and also for paced exercise with goal to help stamina, and weight and to help him have meaning in setting and meeting some goals (3) Sleep apnea Patient will use CPAP. Cont MNPR. (4) Hypertension Continue patient's home medication (5) Hyperlipidemia Continue patient's home medication Discharge / Aftercare Planning Primary Care Physician: Name: Dr. Adal Lynn in [facility] in [place] Therapist: Name: none Field Crop I Farmworker: Name: none Visit Code E&M Code: 63630 Inventory Assets Strengths: willingness for treatment, Needs: psychiatric care, Risk Factors Assessment Male: Yes : Yes /single/: Yes Health problems: Yes Substance use disorders: No Previous attempt: No Family history of suicide: No Previous psychiatric stay: No Hopelessness: Yes Smoker: Yes Protective Factors Assessment : No Responsible for young children: No Employed: No Stable relationships: No Supportive family: No Data Vital Signs Last 24 Hrs: Date Time Temp Pulse Resp B/P (MAP) Pulse Ox O2 Delivery O2 Flow Rate FiO2 04/17/17 07:09 36.9 66 18 139/76 62 156/80 Meds Administered Last 24 Hrs: Meds Administered (Past 24Hrs) Medications (Trade) Dose Ordered Sig/Flora Route Start Time Stop Time Status Last Admin Dose Admin Duloxetine HCl (Cymbalta Cap) 60 mg QAM PO 04/16/17 09:00 05/14/17 08:59 04/17/17 09:12 60 MG Gabapentin (Neurontin Cap) 200 mg BID PO 04/15/17 22:00 04/17/17 21:59 04/17/17 09:13 200 MG Pregabalin (Lyrica Cap) 100 mg BID PO 04/17/17 09:00 05/13/17 21:59 04/17/17 09:13 100 MG Pregabalin (Lyrica Cap) 75 mg 2200 ONCE PO 04/16/17 22:00 04/16/17 22:01 DC 04/16/17 21:19 75 MG
[2017-04-17] MEDS: RANITIDINE HCL 150 MG TAB PO SCH (21:34)
[2017-04-18 06:46] VITALS: BP_SYST 112; BP_SYST 123; BP_DIAS 74; PULSE 61; PULSE 71; TEMP 36.3
[2017-04-18] MEDS: LEVOTHYROXINE 88 MCG TAB PO SCH (07:45)
[2017-04-18] MEDS: MULTIVITAMIN TAB PO SCH (08:41)
[2017-04-18] MEDS: LISINOPRIL 20 MG TAB PO SCH (08:41)
[2017-04-18] MEDS: HYDROCHLOROTHIAZIDE 25 MG TAB PO SCH (08:41)
[2017-04-18] MEDS: PANTOprazole SOD 40 MG TAB PO SCH (08:41)
[2017-04-18] MEDS: DULOXETINE HCL 60 MG CAP PO SCH (08:41)
[2017-04-18] MEDS: PREGABALIN 100 MG CAP PO SCH (08:42)
[2017-04-18] MEDS ORDERED: CYM60 PO (09:34)
[2017-04-18] MEDS ORDERED: LYR100 PO (09:34)
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
[2017-04-18] MEDS: ACETAMINOPHEN 325 MG TAB PO PRN (10:22)
[2017-04-18] MEDS: HYDROCODONE/ACETAMOPHEN 5/325MG TAB PO PRN (13:40)
== END 2017-04-18 14:04 | disposition home or self-care (01) | DRG 885 ==
LOC: C.EDB 18:55 → C.MHU 20:57 → ENRESERV 21:04
PROVIDERS: ADMIT Psychiatry & Neurology Psychiatry; ATTEND Psychiatry & Neurology Psychiatry
DX: F32.89 Other specified depressive episodes (principal); R45.851 Suicidal ideations; Z68.42 Body mass index [BMI] 45.0-49.9, adult; A69.22 Other neurologic disorders in Lyme disease; G62.9 Polyneuropathy, unspecified; T14.90 Injury, unspecified; G89.29 Other chronic pain; X58.XXXS Exposure to other specified factors, sequela; G47.30 Sleep apnea, unspecified; I10 Essential (primary) hypertension; E78.5 Hyperlipidemia, unspecified; E66.9 Obesity, unspecified; Z79.891 Long term (current) use of opiate analgesic; Z79.899 Other long term (current) drug therapy

== ENCOUNTER 2022-11-03 15:48 | Inpatient (IN) ==
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
[2022-11-03 16:49] LABS: Basophils # (auto) 0.07 K/uL (0-0.2); Basophils % (auto) 0.5 %; Eosinophils # (auto) 0.34 K/uL (0-0.50); Eosinophils % (auto) 2.6 %; Hematocrit (blood only) 37.7 % (42.0-52.0); Hemoglobin 12.3 g/dl (14.0-18.0); Immature Granulocytes # (auto) 0.05 K/uL (0.01-0.20); Immature Granulocytes % (auto) 0.4 %; Lymphocytes # (auto) 2.42 K/uL (1.2-3.4); Lymphocytes % (auto) 18.4 %; Mean Corpuscular Hemoglobin 30.6 pg (25.0-34.0); Mean Corpuscular Hgb Conc 32.6 g/dL (32.0-36.0); Mean Corpuscular Volume 93.8 fL (80.0-100.0); Mean Platelet Volume 9.5 fL (9.4-12.4); Monocytes # (auto) 1.16 K/uL (0.11-0.59); Monocytes % (auto) 8.8 %; Neutrophils # (auto) 9.09 K/uL (1.40-6.50); Neutrophils % (auto) 69.3 %; Platelet Count 363 K/uL (130-400); RDW Coefficient of Variation 12.8 % (11.5-14.5); RDW Standard Deviation 44.2 fL (36.4-46.3); Red Blood Count 4.02 M/uL (4.70-6.10); White Blood Count 13.13 K/ul (4.8-10.8)
[2022-11-03 17:09] LABS: Bilirubin,Total 1.2 mg/dl (0.2-1.0); Calcium 9.3 mg/dl (8.6-10.3); Creatinine Clr Calc Pharmacy 45.3 ml/min; Est GFR (African American) 32.9 ml/min; Est GFR (Non-African American) 28.3 ml/min; Globulin 4.2 gm/dl (2.5-4.0); Magnesium 1.2 mg/dl (1.7-2.4); Potassium 4.3 mmol/L (3.5-5.1); Total Protein 8.2 gm/dl (6.0-8.3)
[2022-11-03 17:19] LABS: INR 1.2 (0.9-1.1); Prothrombin Time 12.7 Seconds (9.0-12.0)
[2022-11-03] MEDS: MAGNESIUM SULFATE / D5W 1 GM/100 ML BAG IV SCH ×2 (17:47→18:57)
--- NOTE | 2022-11-03 18:11 | History & Physical Report ---
Date of Service November 03, 2022 Assessment & Plan (1) Bilateral edema of lower extremity: (2) Acute kidney injury superimposed on chronic kidney disease: (3) Hypomagnesemia: (4) Obstructive sleep apnea: Plan This is a 62-year-old male who has significant past medical history of atrial fibrillation anticoagulated on Eliquis, obstructive sleep apnea, asthma, HTN, hyperlipidemia, CKD stage III, chronic back and neck pain, idiopathic peripheral neuropathy, morbid obesity who presents to ED secondary to lower extremity swelling. He complains of worsening swelling to feet. Of significance patient recently hospitalized for 2-1/2 weeks at [facility] secondary to Yersinia enterocolitis. He completed course of IV antibiotics. During hospital stay he had notable acute on chronic CKD with creatinine greater than 2.5. Due to this his metformin, HCTZ and lisinopril were discontinued. He was placed on amlodipine. He was discharged on 10/31 and presents here today due to continued lower extremity swelling, slightly worse on the left. Bilateral lower extremity swelling Acute on chronic CKD stage III, baseline 1.5-1.6 Admit to telemetry Placed on Lasix 20 mg IV daily Lower extremity swelling may be iatrogenic in setting of fluid administration during recent hospitalization, likely multifactorial Edema may also be in setting of recent addition of amlodipine, will place on hold for now and keep close eye on blood pressure BNP only mildly elevated at 139 Obtain bilateral venous Doppler, though feel less likely due to patient on Eliquis echocardiogram Monitor renal function closely, if worsens then consider nephrology consult UA shows trace protein Avoid nephrotoxic agents No indication for further antibiotics at this point, but monitor left lower extremity erythema closely Recent Yersinia enterocolitis Finished IV antibiotics Still with mild diffuse abdominal pain, and bowel habits still not back to normal Placed on probiotic and monitor Hypomagnesemia Received 2 g mag sulfate in ED, will repeat magnesium level and replete as necessary Placed on mag oxide 400 mg twice daily Chronic Afib continue metoprolol and eliquis rate controlled HTN continue metoprolol, IV lasix hold amlodipine for now given edema T2DM unknown a1c, hold glipizide metformin d/c due to renal function novolog per protocol obtain a1c in a.m. HLD continue statin ANGEL LUIS on CPAP Asthma - continue home inhalers, no acute exac Morbid obesity, BMI 40.8 - encourage diet/lifestyle modifications DVT ppx: eliquis Dispo: med tele PCP: Laura DNR/DNI A total of 75 minutes was spent with greater than 50% of that time personally viewing all current laboratory work and diagnostic imaging studies obtained in the ED. Additionally, I was able to view the patients past medication reconciliation and history with direct visualization in the patients chart. I ncluded in the time above, a portion of that time was spent assessing the patient while discussing and collaborating with specialists, if necessary, and making medical decision making on treatment plan. All of the above was collaborated with Dr. Valdez. Please see addendum for further details. History of Present Illness Chief Complaint: Lower extremity swelling x 2 weeks. Primary Care Provider: Efrain Sanchez This is a 62-year-old male who has significant past medical history of atrial fibrillation anticoagulated on Eliquis, obstructive sleep apnea, asthma, HTN, hyperlipidemia, CKD stage III, chronic back and neck pain, idiopathic peripheral neuropathy, morbid obesity who presents to ED secondary to lower extremity swelling. He complains of worsening swelling to feet. He was recently hospitalized at [facility] due to Yersinia Enterocolitis. He felt that he was getting a lot of IVF and IV antibiotics as well. He completed antibiotic course. He was discharged on Monday. When they discharged him he could barely get his shoes on. Swelling is a little worse on the left, but right is about the same if not reduced. He has been keeping them elevated. Since discharge he has been mostly sedentary and keeping legs elevated. He does have redness to L foot and big toe that he feels is worse and warm but no pain. Pt denies f/c/s, sore throat, SOB at rest, n/v/d, abd pain, change urinary habits. He continues to have generalized abd pain and diarrhea but much improved since hospitalization. He has chronic cough, daily chest pain due to afib, chronic MARLOW, easy fatigue which is normal for him. He follows with a pressing machine operator at [facility]. He denies prior hx of heart failure. During recent hospitalization he had JUD and therefore his HCTZ and lisinopril and metformin was stopped. He was started on amlodipine. Previous hx of marijuana smoking, but has had for 3 months. He is a former smoker and denies alcohol use. Typically walks with a cane. In ED patient remained hemodynamically stable. Lab work was notable for WBC 13.13 K, H&H 12.3 and 37.7, platelet 363, BUN 38, creatinine 2.38, glucose 112, mag 1.2, BNP 139 and lipase at 260. Chest x-ray was negative for any acute pulmonary disease and urinalysis was negative except for trace protein. Allergies Allergy/AdvReac Type Severity Reaction Status Date / Time codeine Allergy Severe Anaphylaxis Verified 11/03/22 18:07 (per pt, tolerates percocet/morphone) Home Medications Medication Instructions Recorded Confirmed Type duloxetine 60 mg capsule,delayed 60 mg PO BID #180 caps 08/21/19 11/03/22 Rx release apixaban 5 mg tablet (Eliquis) 5 mg PO BID #60 tabs 10/24/19 11/03/22 Rx Mobility scooter #1 ea 01/14/20 11/03/22 Rx pantoprazole 40 mg tablet,delayed 40 mg PO BID #180 tabs 06/19/20 11/03/22 Rx release pregabalin 75 mg capsule 75 mg PO TID 02/08/21 11/03/22 History albuterol sulfate 90 mcg/actuation 2 puff inhalation QID PRN Wheezing 11/03/22 11/03/22 History aerosol inhaler amlodipine 5 mg tablet 5 mg PO QAM 11/03/22 11/03/22 History fluticasone propionate 115 2 puff inhalation BID 11/03/22 11/03/22 History mcg-salmeterol 21 mcg/actuation HFA inhaler (Advair HFA) glipizide 2.5 mg tablet, extended 2.5 mg PO DAILY 11/03/22 11/03/22 History release 24 hr levothyroxine 100 mcg tablet 100 mcg PO DAILYBB 11/03/22 11/03/22 History lovastatin 40 mg tablet 40 mg PO HS 11/03/22 11/03/22 History metoprolol succinate 50 mg 50 mg PO BID 11/03/22 11/03/22 History tablet,extended release 24 hr Past Med/Surg History Medical History Anxiety and depression Arthritis Asthma Atrial fibrillation on Eliquis Chronic kidney disease Stage III Chronic pain Diffuse Diabetes mellitus, type 2 NIDDM GERD (gastroesophageal reflux disease) History of TMJ disorder Hyperlipidemia Hypertension Hypothyroidism Obstructive sleep apnea CPAP Polyneuropathy Post traumatic stress disorder 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 Alaniz without incidence History of open reduction and internal fixation (ORIF) procedure Right humerus History of sinus surgery Multiple History of surgery endoscopic sinus surgery, somnoplasty, and tongue base on 04/23/21 - DR. CHAVEZ History of tonsillectomy and adenoidectomy History of tracheostomy Placed 2005 "for sleep apnea" History of umbilical hernia repair History of uvulopalatopharyngoplasty Family History Grandmother Breast cancer Grandfather Myocardial infarction Father Prostate cancer Alcohol abuse Hearing loss Anxiety Cancer Mother Cancer Other No family history of adverse response to anesthesia Denies family history of Ovarian cancer Colorectal cancer Social History Smoking Status: Never smoker Second Hand Exposure: Yes (IN THE PAST); Hx Alcohol Use: No Hx Substance Use: No Preferred Language: Faroese Communication Ability: Effective Visual Impairment: No Limitations Hearing Ability: Normal Card Mounter Required: No Beliefs That Will Affect Care: None marital status: Single Current Living Situation: Alone Current Living Situation Comment: HOME ALONE current occupational status: unemployed and disabled Other Information That Helps Us Care for You: No Feels Safe at Home: Yes Safety Concerns: Feels Safe At This Time Assistive Devices: Cane, Glasses and Wheelchair Review of Systems Review of Systems: All systems reviewed & are unremarkable except as noted in HPI & below Physical Exam Physical Exam: Please refer to Dr. Valdez addendum due to physical exam findings. Results & Data Results & Data Vital Signs (Past 12 Hours) Vital Signs Temp Pulse Pulse Resp BP BP Pulse Ox 11/03/22 16:51 77 11/03/22 16:39 82 18 120/83 98 11/03/22 15:52 36.8 C 112 H 20 125/79 98 O2 Del Method 11/03/22 16:51 11/03/22 16:39 Room Air 11/03/22 15:52 Room Air Medications Administered Medication List Magnesium Sulfate/Dextrose (Magnesium Sulfate / D5w) 1 gm in 100 mls @ 100 mls/hr IV Q1H PORSHA Stop: 11/03/22 19:21 Last Admin: 11/03/22 17:47 Dose: 100 mls/hr Documented By: SHREYA COVID-19 Results Results COVID-19 Adm Lab Results: RBC 3.93 M/uL (4.70-6.10) L 11/04/22 WBC 10.79 K/ul (4.8-10.8) 11/04/22 Hgb 12.0 g/dl (14.0-18.0) L 11/04/22 Hct 35.8 % (42.0-52.0) L 11/04/22 Plt Count 308 K/uL (130-400) 11/04/22 Neutrophils (%) (Auto) 66.2 % 11/04/22 Lymphocytes (%) (Auto) 20.1 % 11/04/22 Monocytes # (Auto) 0.98 K/uL (0.11-0.59) H 11/04/22 Eosinophils # (Auto) 0.37 K/uL (0-0.50) 11/04/22 Immature Granulocyte % (Auto) 0.5 % 11/04/22 Neutrophils # (Auto) 7.14 K/uL (1.40-6.50) H 11/04/22 Lymphocytes # (Auto) 2.17 K/uL (1.2-3.4) 11/04/22 Monocytes # (Auto) 0.98 K/uL (0.11-0.59) H 11/04/22 Eosinophils # (Auto) 0.37 K/uL (0-0.50) 11/04/22 Basophils # (Auto) 0.08 K/uL (0-0.2) 11/04/22 Immature Granulocyte # (Auto) 0.05 K/uL (0.01-0.20) 3 Na 138 mmol/L (136-145) 11/04/22 K 4.2 mmol/L (3.5-5.1) 11/04/22 Cl 103 mmol/L (98-107) 11/04/22 CO2 26 mmol/L (21-32) 11/04/22 Anion Gap 9 (3-11) 11/04/22 BUN 33 mg/dl (6-23) H 11/04/22 Creatinine 1.99 mg/dl (0.6-1.4) H 11/04/22 BUN/Creatinine Ratio 16.6 (10-20) 11/04/22 Glucose Level 100 mg/dl (70-99(Fasting)) H 11/04/22 Ca 9.1 mg/dl (8.6-10.3) 11/04/22 Total Bilirubin 1.2 mg/dl (0.2-1.0) H 11/04/22 AST/SGOT 22 U/L (13-39) 11/04/22 ALT/SGPT 13 U/L (7-52) 11/04/22 Alkaline Phosphatase 67 U/L (34-104) 11/04/22 Total Protein 7.5 gm/dl (6.0-8.3) 11/04/22 Albumin 3.6 gm/dl (3.4-5.0) 11/04/22 Globulin 3.9 gm/dl (2.5-4.0) 11/04/22 Albumin/Globulin Ratio 0.9 (0.9-2) 11/04/22 Total CK 30 U/L (30-223) 11/03/22 INR 1.2 (0.9-1.1) H 11/03/22 COVID-19 PCR NEGATIVE (Negative) 11/03/22 Influenza Virus Type A (PCR) Negative (Neg) 11/03/22 Influenza Virus Type B (PCR) Negative (Neg) 11/03/22 Chest X-Ray 11/03/22 Code Status & VTE Plan Code Status DNR/DNI Supervising Physician Co-Signing Physician Notes 62 yo M w/ PMH of Afib on eliquis, ANGEL LUIS, Asthma, HTN, HLD, CKD III, Chronic back and neck pain, idiopathic peripheral neuropathy who recently was admitted/treated for Y enterocolitica at [facility] which was complicated by JUD and BLE swelling. His lisinopril/metformin/hydrochlorothiazide were discontinued. He said that his BLE swelling were about the same at discharge and has not improved/slightly worsened. It is causing him disbalance and he cannot walk. Also he reports he has been having shortness of breath with exertion for few years but denies any diagnosis of heart failure in the past. He does have A-fib and he is on Eliqui s. Admitting labs reviewed, creatinine slightly better than his recent creatinine at [facility] but is still elevated at 2.38 which is higher than his baseline at 1.68. CXR per my interpretation w/ pulm vasc congestion. He does have 2+ pitting edema and some redness to his left foot not very warm or tender. Will use Lasix 20 Mg IV today and daily. Consult cardiology. Get BNP and echo. Monitor lites. We will monitor him off of antibiotic and closely monitor for any development of cellulitis in his left lower extremity. He reports improving belly pain and diarrhea. Denies any smoking or alcohol intake or drug use. Occasionally smokes marijuana, last 1 may be more than 3 months ago. DNR/DNI per discussion with the patient. Will use probiotic, and Lac-Hydrin for lower extremities. Upon examination: GENERAL: Alert and oriented x3. NAD, on RA. HEENT: No pallor, no icterus. Pupils equal, round and reactive to light. Oral mucosa moist. NECK: No JVD, no neck masses. HEART: S1 and S2 heard. Regular rate and rhythm. No murmur, no gallop. RESPIRATORY SYSTEM: Normal AP diameter. No accessory muscle use. No wheezing, bibasilar crackles. ABDOMEN: Soft, bowel sounds present, nontender, no distention. CENTRAL NERVOUS SYSTEM: No facial droop. Speech is clear. Obeys simple commands. Moves extremities. EXTREMITIES: RLE 2+ pitting edema, LLE 2+ pitting edema with some erythema over left foot/no tenderness or warmth noted. I have seen and examined the patient and have discussed the case with the provider above. I agree with the assessment and plan as stated.
[2022-11-03] MEDS ORDERED: FUROSEMIDE INJ 20 MG/2 ML VIAL IV STA (18:42)
[2022-11-03 19:01] LABS: Influenza A virus by PCR Negative (Neg); Influenza B virus by PCR Negative (Neg); RSV by PCR Negative (Neg); SARS CoV2 RNA(COVID-19) Ceph NEGATIVE (Negative)
--- NOTE | 2022-11-03 19:01 | XRay Report ---
XR chest 1V portable CLINICAL HISTORY: Dyspnea on exertion. Edema. COMPARISON STUDY: Chest radiograph November 01, 2018. Chest CT July 05, 2010. FINDINGS: Postoperative findings within the spine are incidentally noted. There is no pneumothorax or pleural effusion. Enlargement of the cardiac silhouette is again noted. There is no evidence for pul monary edema. No consolidation is identified to suggest pneumonia. IMPRESSION: No acute cardiopulmonary findings. Cardiomegaly. ACT 112: Negative or not required by law. Electronically signed by: Serjio Zavala M.D. 11/03/2022 6:59 PM
[2022-11-03 19:09] LABS: Appearance Urine Clear (Clear); Bacteria Urine Automated Negative (Negative); Bilirubin Urine Negative (Negative); Blood Urine Negative (Negative); Color Urine Yellow; Epithelial Cell Urine Auto 0-5 /lpf (0-5); Glucose Urine UA Negative (Negative); Ketones Urine Negative (Negative); Leukocyte Esterase Urine Negative (Negative); Nitrite Urine Negative (Negative); Protein Urine Trace (Negative); RBC Urine Automated 0-4 /hpf (0-4); Specific Gravity Urine 1.008 (1.000-1.030); Urobilinogen Urine Negative (Negative)
[2022-11-03] MEDS ORDERED: ALBUTEROL HFA 8 GM INHALER INH PRN (20:19)
[2022-11-03] MEDS ORDERED: GLUCOSE 40% GEL 15 GM TUBE PO PRN (20:19)
[2022-11-03] MEDS ORDERED: GLUCAGON FOR INJ 1 MG VIAL SQ PRN (20:19)
[2022-11-03] MEDS ORDERED: ACETAMINOPHEN 325 MG TAB PO PRN (20:19)
[2022-11-03] MEDS ORDERED: CARBOHYDRATES FOR HYPOGLYCEMIA PO PRN (20:19)
[2022-11-03] MEDS ORDERED: ONDANSETRON INJ 2 MG/ML 2 ML VIAL IV PRN (20:19)
[2022-11-03] MEDS ORDERED: MAGNESIUM HYDROXIDE SUSP 30 ML UDC PO PRN (20:19)
[2022-11-03] MEDS ORDERED: POLYETHYLENE (MIRALAX) 17 GM PACK PO PRN (20:19)
[2022-11-03] MEDS ORDERED: DEXTROSE 50% 50 ML SYRINGE IV PRN (20:19)
[2022-11-03] MEDS ORDERED: GLUCOSE 10 TAB/TUBE PO PRN (20:19)
[2022-11-03] MEDS ORDERED: ALUMINUM/MAGNESIUM SUSP 30 ML UDC PO PRN (20:19)
[2022-11-03] MEDS: INSULIN ASPART PER UNIT CHARGE SC SCH (20:50)
[2022-11-03] MEDS: AMMONIUM LACTATE 12% LOTION 225 GM BTL EXT SCH (21:06)
[2022-11-03] MEDS: APIXABAN 5 MG TABLET PO SCH (21:06)
[2022-11-03] MEDS: DULoxetine HCL 60 MG CAP PO SCH (21:07)
[2022-11-03] MEDS: MAGNESIUM OXIDE 400 MG TAB PO SCH (21:07)
[2022-11-03] MEDS: ADVANCED PROBIOTIC 1250 MG CAPSULE PO SCH (21:07)
[2022-11-03] MEDS: PANTOprazole 40 MG TAB PO SCH (23:13)
[2022-11-03] MEDS: LOVASTATIN 20 MG TAB PO SCH (23:13)
[2022-11-03] MEDS: PREGABALIN 75 MG CAP PO SCH (23:13)
[2022-11-03] MEDS: METOPROLOL SUCC 50MG EXT REL TAB PO SCH (23:13)
[2022-11-04] LABS: Magnesium 1.6 mg/dl (1.7-2.4)
[2022-11-04] MEDS ORDERED: MAGNESIUM SULFATE / D5W 1 GM/100 ML BAG IV ONE (00:27)
[2022-11-04] MEDS: LEVOTHYROXINE SODIUM 100 MCG TABLET PO SCH (05:39)
[2022-11-04 07:03] LABS: Basophils # (auto) 0.08 K/uL (0-0.2); Basophils % (auto) 0.7 %; Eosinophils # (auto) 0.37 K/uL (0-0.50); Eosinophils % (auto) 3.4 %; Hematocrit (blood only) 35.8 % (42.0-52.0); Immature Granulocytes # (auto) 0.05 K/uL (0.01-0.20); Immature Granulocytes % (auto) 0.5 %; Lymphocytes # (auto) 2.17 K/uL (1.2-3.4); Lymphocytes % (auto) 20.1 %; Mean Corpuscular Hemoglobin 30.5 pg (25.0-34.0); Mean Corpuscular Hgb Conc 33.5 g/dL (32.0-36.0); Mean Corpuscular Volume 91.1 fL (80.0-100.0); Mean Platelet Volume 9.8 fL (9.4-12.4); Monocytes # (auto) 0.98 K/uL (0.11-0.59); Monocytes % (auto) 9.1 %; Neutrophils # (auto) 7.14 K/uL (1.40-6.50); Neutrophils % (auto) 66.2 %; Platelet Count 308 K/uL (130-400); RDW Coefficient of Variation 12.7 % (11.5-14.5); RDW Standard Deviation 42.1 fL (36.4-46.3); Red Blood Count 3.93 M/uL (4.70-6.10); White Blood Count 10.79 K/ul (4.8-10.8)
--- NOTE | 2022-11-04 07:07 | Ultrasound Report ---
BILATERAL LOWER EXTREMITY VENOUS DOPPLER HISTORY: Lower extremity edema COMPARISON STUDY: None. FINDINGS: There is normal compressibility, flow, and augmentation within the bilateral lower extremit y deep venous systems. Small bilateral popliteal cysts are noted. IMPRESSION: No DVT within the right or left lower extremity. ACT 112: Negative or not required by law. Electronically signed by: Humberto Galarza M.D. 11/04/2022 7:06 AM
[2022-11-04 07:28] LABS: Estimated Average Glucose 148 mg/dl; Hemoglobin A1C 6.8 % (4.5-5.6)
[2022-11-04 07:33] LABS: Albumin Globulin Ratio 0.9 (0.9-2); Albumin Level 3.6 gm/dl (3.4-5.0); BUN Creatinine Ratio 16.6 (10-20); Bilirubin,Total 1.2 mg/dl (0.2-1.0); Calcium 9.1 mg/dl (8.6-10.3); Creatinine Clr Calc Pharmacy 56.4 ml/min; Est GFR (African American) 40.8 ml/min; Est GFR (Non-African American) 35.2 ml/min; Globulin 3.9 gm/dl (2.5-4.0); Magnesium 1.7 mg/dl (1.7-2.4); Potassium 4.2 mmol/L (3.5-5.1); Total Protein 7.5 gm/dl (6.0-8.3)
--- NOTE | 2022-11-04 07:43 | Electrocardiogram Report ---
Test Reason : Blood Pressure : / mmHG Vent. Rate : 075 BPM Atrial Rate : 085 BPM P-R Int : 000 ms QRS Dur : 078 ms QT Int : 352 ms P-R-T Axes : 000 001 024 degrees QTc Int : 393 ms Atrial fibrillation Low voltage QRS Abnormal ECG When compared with ECG of 12-APR-2017 19:40, Atrial fibrillation has replaced Sinus rhythm Confirmed by Tristan Finnegan ([id number]) on 11/04/2022 7:42:53 AM Referred By: REFERRED SELF Confirmed By:Tristan Finnegan
--- NOTE | 2022-11-04 08:07 | Cardiology Consultation ---
Date of Consultation November 04, 2022 Assessment & Plan (1) Lower extremity edema: (2) (HFpEF) heart failure with preserved ejection fraction: (3) Permanent atrial fibrillation: (4) CKD (chronic kidney disease): (5) Obstructive sleep apnea: Plan IMPRESSION: 62 year old male with progressive lower extremity edema following prolonged hospitalization at [facility] for enterocolitis. Lower extremity edema resolved with IV Lasix. BMP improving with diuresis, BNP minimally elevated. CXR without acute process. Echocardiogram was technically limited however imaging did show a normal LVEF with mild MR. Patient appears to be well compensated from a cardiology standpoint at this time. Lower extremity edema multifactorial given recent prolonged hospitalization with med changes and likely fluid resuscitation plus the addition of Norvasc. Likely a component of diastolic dysfunction given history of hypertension and atrial fibrillation. BP and heart rates well controlled. PLAN: -Recommend transitioning to Lasix 20 mg PO, may need to increase to 40 mg daily pending clinical response. -Avoid CCB use given recent lower extremity edema. Should BP increase and scr returns to baseline can consider restarting low dose lisinopril due to renal protection properties and following up with primary chucking machine set up operator tool/cmo & president at [facility] at discharge. -Daily BMP, 2g sodium diet, strict I&O, daily standing weights -Continue Metoprolol and Eliquis as ordered for permanent atrial fibrillation -Encourage compliance with CPAP. Case discussed with Dr. Mckenna. No further recommendations from a cardiology standpoint. Will sign off. Supervising Physician Co-Signing Physician Notes I have reviewed the advance practitioner documentation and agree. I saw and evaluated the patient on the date of service referenced in the note and have performed a medically appropriate history and or exam. The patient can follow- up with his physicians in [place]. History of Present Illness Reason for Consultation: Lower extremity edema Requesting Physician: [facility] hospitalist team Attending Physician: Amador Valdez MD History of Present Illness 62-year-old male who initially presented to the [facility] emergency department due to lower extremity edema. Patient was recently hospitalized at [facility] secondary to Yersinia enterocolitis. He was treated with IV antibiotics. During his hospital stay he developed acute on chronic CKD with a creatinine greater than 2.5 and because of this metformin, hydrochlorothiazide, and lisinopril were all discontinued and he was placed on amlodipine. He was discharged home on 10/31. Upon entrance into the room patient resting comfortably in bed without acute concern. States that he is feeling back to baseline since admission. Per the patient- while admitted he was having worsening lower extremity edema, he was on Lasix in the hospital, but was not discharged on any diuretics. Swelling progressively got worse to the point where he could no longer fit his shoes on his feet. His caregiver was concerned and recommended that he comes to the ED. In the emergency department patient was started on 20 mg of IV Lasix daily. Norvasc held. Patient has chronic chest pain and shortness of breath- has been going on for "many years"- he attributes this to deconditioning and chronic pain. Per the patient he has had a cardiac workup in 2019 when he was diagnosed with AFIB- and testing was unremarkable, unfortunately no prior testing is available for me to review. Patient notes a significant improvement in his lower extremity edema. No orthopnea or PND- wears CPAP nightly. He does follow with a cmo & president and chucking machine set up operator tool at [facility]. No prior history of CAD, valvular heart disease, rheumatic fever, CVA. Labs: Serum creatinine elevated above baseline 2.38>>1.99, BNP mildly elevated 139. Hypomagnesia- replaced this am. Chest x-ray: No acute cardiopulmonary findings, cardiomegaly. Venous Dopplers: no DVT Echo: Technically limited study. LVEF 55 to 60% with mild MR. EKG: Atrial fibrillation 75 bpm Telemetry: AFIB 80-90s I&O: -1.7L Weight: 144.3 >> 142.9 kg Past medical history: Permanent atrial fibrillation, on Eliquis- dx 09/2018 HFpEF Hypertension Hyperlipidemia CKD stage III, baseline creatinine 1.5-1.6 ANGEL LUIS on CPAP Type 2 diabetes Chronic back and neck pain with idiopathic peripheral neuropathy Morbid obesity History of Yerisina enterocolitis and superimposed acute on chronic CKD, hospitalized 2-1/2 weeks at [facility], received IV antibiotics Allergies Allergy/AdvReac Type Severity Reaction Status Date / Time codeine Allergy Severe Anaphylaxis Verified 11/03/22 18:07 (per pt, tolerates percocet/morphone) Home Medications Medication Instructions Recorded Confirmed Type duloxetine 60 mg capsule,delayed 60 mg PO BID #180 caps 08/21/19 11/03/22 Rx release apixaban 5 mg tablet (Eliquis) 5 mg PO BID #60 tabs 10/24/19 11/03/22 Rx Mobility scooter #1 ea 01/14/20 11/03/22 Rx pantoprazole 40 mg tablet,delayed 40 mg PO BID #180 tabs 06/19/20 11/03/22 Rx release pregabalin 75 mg capsule 75 mg PO TID 02/08/21 11/03/22 History albuterol sulfate 90 mcg/actuation 2 puff inhalation QID PRN Wheezing 11/03/22 11/03/22 History aerosol inhaler amlodipine 5 mg tablet 5 mg PO QAM 11/03/22 11/03/22 History fluticasone propionate 115 2 puff inhalation BID 11/03/22 11/03/22 History mcg-salmeterol 21 mcg/actuation HFA inhaler (Advair HFA) glipizide 2.5 mg tablet, extended 2.5 mg PO DAILY 11/03/22 11/03/22 History release 24 hr levothyroxine 100 mcg tablet 100 mcg PO DAILYBB 11/03/22 11/03/22 History lovastatin 40 mg tablet 40 mg PO HS 11/03/22 11/03/22 History metoprolol succinate 50 mg 50 mg PO BID 11/03/22 11/03/22 History tablet,extended release 24 hr Patient History Medical History Anxiety and depression Arthritis Asthma Atrial fibrillation on Eliquis Chronic kidney disease Stage III Chronic pain Diffuse Diabetes mellitus, type 2 NIDDM GERD (gastroesophageal reflux disease) History of TMJ disorder Hyperlipidemia Hypertension Hypothyroidism Obstructive sleep apnea CPAP Polyneuropathy Post traumatic stress disorder 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 Alaniz without incidence History of open reduction and internal fixation (ORIF) procedure Right humerus History of sinus surgery Multiple History of surgery endoscopic sinus surgery, somnoplasty, and tongue base on 04/23/21 - DR. CHAVEZ History of tonsillectomy and adenoidectomy History of tracheostomy Placed 2000/removed 2005 "for sleep apnea" History of umbilical hernia repair History of uvulopalatopharyngoplasty Family History Grandmother Breast cancer Grandfather Myocardial infarction Father Prostate cancer Alcohol abuse Hearing loss Anxiety Cancer Mother Cancer Other No family history of adverse response to anesthesia Denies family history of Ovarian cancer Colorectal cancer Social History Smoking Status: Never smoker Second Hand Exposure: Yes (IN THE PAST); Hx Alcohol Use: No Hx Substance Use: No Preferred Language: Tamazight Communication Ability: Effective Visual Impairment: No Limitations Hearing Ability: Normal Collar Padder Blindstitch Required: No Beliefs That Will Affect Care: None marital status: Single Current Living Situation: Alone Current Living Situation Comment: HOME ALONE current occupational status: unemployed and disabled Other Information That Helps Us Care for You: No Feels Safe at Home: Yes Safety Concerns: Feels Safe At This Time Assistive Devices: Cane, Glasses and Wheelchair Review of Systems Review of Systems: All systems reviewed & are unremarkable except as noted in HPI & below Physical Exam Constitutional: WD/WN, vitals as above no acute distress Eyes: PERRL, conjunctivae normal, anicteric sclerae Neck: normal visual inspection and trachea midline Respiratory: normal respiratory effort, lungs clear to auscultation no respiratory distress and no cough Auscultation: no crackles, no rales, no rhonchi and no wheezes Cardiovascular: Rate/Rhythm: regular rate and + irregularly irregular Heart Sounds: normal S1 and normal S2; no murmur Vessels: no JVD (unable to assess due to body habitus ) Extremities: no pedal edema and no edema Gastrointestinal (Abdomen): normal bowel sounds, soft, nontender, no hepatosplenomegaly (Obese ) Skin: no rashes, warm and dry Psychiatric: A+Ox3, euthymic affect Results & Data Vital Signs (Past 12 Hours) Vital Signs Temp Pulse Pulse Pulse Resp BP Pulse Ox 11/04/22 07:39 36.6 C 77 18 112/66 95 04/07/23 07:37 76 11/04/22 03:14 36.4 C L 79 18 112/67 95 11/03/22 23:11 36.5 C 81 18 119/74 98 11/03/22 22:19 11/03/22 21:44 77 14 100 11/03/22 20:26 11/03/22 20:20 36.7 C 80 18 122/80 98 O2 Del Method 11/04/22 07:39 Room Air 11/04/22 07:37 11/04/22 03:14 Room Air 11/03/22 23:11 Room Air 11/03/22 22:19 Room Air, CPAP 11/03/22 21:44 11/03/22 20:26 Room Air, CPAP 11/03/22 20:20 Room Air Laboratory Results Cardiac Enzymes 11/03/22 11/03/22 11/04/22 Range/Units 16:26 18:35 06:18 AST 27 22 (13-39) U/L B-Natriuretic Peptide 139 H (0-100) pg/ml Coagulation 11/03/22 11/03/22 Range/Units 16:26 18:35 PT 12.7 H (9.0-12.0) Seconds B-Natriuretic Peptide 139 H (0-100) pg/ml CBC 11/03/22 11/04/22 Range/Units 16:26 06:18 WBC 13.13 H 10.79 (4.8-10.8) K/ul RBC 4.02 L 3.93 L (4.70-6.10) M/uL Hgb 12.3 L 12.0 L (14.0-18.0) g/dl Hct 37.7 L 35.8 L (42.0-52.0) % Plt Count 363 308 (130-400) K/uL Neut # (Auto) 9.09 H 7.14 H (1.40-6.50) K/uL Lymph # (Auto) 2.42 2.17 (1.2-3.4) K/uL Custer # (Auto) 1.16 H 0.98 H (0.11-0.59) K/uL Eos # (Auto) 0.34 0.37 (0-0.50) K/uL Baso # (Auto) 0.07 0.08 (0-0.2) K/uL Comprehensive Metabolic Panel 11/03/22 11/04/22 Range/Units 16:26 06:18 Sodium 137 138 (136-145) mmol/L Potassium 4.3 4.2 (3.5-5.1) mmol/L Chloride 102 103 (98-107) mmol/L Carbon Dioxide 28 26 (21-32) mmol/L BUN 38 H 33 H (6-23) mg/dl Creatinine 2.38 H 1.99 H D (0.6-1.4) mg/dl Glucose 112 H 100 H (70-99(Fasting)) mg/dl Calcium 9.3 9.1 (8.6-10.3) mg/dl AST 27 22 (13-39) U/L ALT 18 13 (7-52) U/L Alkaline Phosphatase 73 67 (34-104) U/L Total Protein 8.2 7.5 (6.0-8.3) gm/dl Albumin 4.0 3.6 (3.4-5.0) gm/dl Intake and Output 11/03/22 11/04/22 11/04/22 22:59 06:59 14:59 Intake Total 200 / 420 220 / 420 Output Total 850 / 2200 1350 / 2200 Balance -650 / -1780 -1130 / -1780 Intake: IV 200 / 300 100 / 300 Magnesium Sulfate / D5w 1 gm In 200 / 300 100 / 300 100 ml @ 50 mls/hr IV ONE ONE Rx#:[id number] Oral 120 / 120 Output: Urine 850 / 2200 1350 / 2200 Other: Weight 144.3 kg 142.9 kg Weight Measurement Method Standing Scale Standing Scale
[2022-11-04] MEDS: INSULIN ASPART PER UNIT CHARGE SC SCH ×4 (08:25→20:13)
[2022-11-04] MEDS: PREGABALIN 75 MG CAP PO SCH ×3 (08:27→20:17)
[2022-11-04] MEDS: FLUTICASONE/VILANTEROL 200/25MCG 14 PUFFS/INHALER INH SCH (08:28)
[2022-11-04] MEDS: METOPROLOL SUCC 50MG EXT REL TAB PO SCH ×2 (08:30→21:01)
[2022-11-04] MEDS: PANTOprazole 40 MG TAB PO SCH ×2 (08:31→20:17)
[2022-11-04] MEDS: DULoxetine HCL 60 MG CAP PO SCH ×2 (08:32→20:13)
[2022-11-04] MEDS: ADVANCED PROBIOTIC 1250 MG CAPSULE PO SCH (08:32)
[2022-11-04] MEDS: APIXABAN 5 MG TABLET PO SCH ×2 (08:32→20:14)
[2022-11-04] MEDS: AMMONIUM LACTATE 12% LOTION 225 GM BTL EXT SCH ×2 (08:33→20:12)
[2022-11-04] MEDS: MAGNESIUM OXIDE 400 MG TAB PO SCH ×2 (08:33→20:14)
[2022-11-04] MEDS ORDERED: FUROSEMIDE INJ 20 MG/2 ML VIAL IV SCH (09:00)
--- NOTE | 2022-11-04 15:16 | Hospitalist Progress Note ---
Date of Service November 04, 2022 Assessment & Plan (1) Bilateral edema of lower extremity: (2) Acute kidney injury superimposed on chronic kidney disease: (3) Hypomagnesemia: (4) Obstructive sleep apnea: Plan This is a 62-year-old male who has significant past medical history of atrial fibrillation anticoagulated on Eliquis, obstructive sleep apnea, asthma, HTN, hyperlipidemia, CKD stage III, chronic back and neck pain, idiopathic peripheral neuropathy, morbid obesity who presents to ED secondary to lower extremity swelling. He complains of worsening swelling to feet. Of significance patient recently hospitalized for 2-1/2 weeks at [facility] secondary to Yersinia enterocolitis. He completed course of IV antibiotics. During hospital stay he had notable acute on chronic CKD with creatinine greater than 2.5. Due to this his metformin, HCTZ and lisinopril were discontinued. He was placed on amlodipine. He was discharged on 10/31 and presents here today due to continued lower extremity swelling, slightly worse on the left. Bilateral lower extremity swelling Acute on chronic CKD stage III, baseline 1.5-1.6 Likely acute diastolic HF Admit to telemetry, echo reviewed, BNP elevated. Doppler LE negative for DVT. Placed on Lasix 20 mg IV daily initially, cardio evaled, appreciate recs. Lower extremity swelling may be iatrogenic in setting of fluid administration during recent hospitalization, likely multifactorial Edema may also be in setting of recent addition of amlodipine, on background of undiagnosed HF. Monitor renal fxn, dc amlod, resume lisinopril on DC pending renal improvement. Avoid nephrotoxins, LLE erythema has improved significantly without any antibiotic, closely follow. Recent Yersinia enterocolitis Finished IV antibiotics Still with mild diffuse abdominal pain, and bowel habits still not back to normal --> improving gradually per pt. c/w probiotic and monitor Hypomagnesemia: Monitor and replete. Chronic Afib continue metoprolol and eliquis rate controlled HTN continue metoprolol, lasix DC amlod, resume lisinopril pending renal improvement. T2DM unknown a1c, hold glipizide metformin d/c due to renal function novolog per protocol HLD continue statin ANGEL LUIS on CPAP Asthma - continue home inhalers, no acute exac Morbid obesity, BMI 40.8 - encourage diet/lifestyle modifications DVT ppx: eliquis Dispo: med tele PCP: Laura DNR/DNI Admission and Anticipated Discharge Date Admission Date: November 03, 2022 Subjective Pt seen and examined at bedside as a f/u of likely acute diastolic HF, weakness/inability to care of self. Pt lying in bed, nad, on RA, reports passing urine adequately, still reports sob w/ exertion, reports improving erythema of lower extremity, reports eating ok and moving bowels ok, denies fever/headach/dizziness. Reports no diarrhea, improving belly pain. Physical Exam Physical Exam: GENERAL: Alert and oriented x3. NAD, on RA. HEENT: No pallor, no icterus. Pupils equal, round and reactive to light. Oral mucosa moist. NECK: No JVD, no neck masses. HEART: S1 and S2 heard. Regular rate and rhythm. No murmur, no gallop. RESPIRATORY SYSTEM: Normal AP diameter. No accessory muscle use. No wheezing, bibasilar crackles. ABDOMEN: Soft, bowel sounds present,nontender, no distention. CENTRAL NERVOUS SYSTEM: No facial droop. Speech is clear. Obeys simple commands. Moves extremities. EXTREMITIES: RLE 2+ pitting edema, LLE 2+ pitting edema with some erythema over left foot/no tenderness or warmth noted -- this erythema from presentation is improving today. Results & Data Results & Data Vital Signs (Past 12 Hours) Vital Signs Temp Pulse Pulse Resp BP Pulse Ox O2 Del Method 11/04/22 15:05 36.7 C 74 20 123/76 95 Room Air 11/04/22 11:01 37.0 C 80 20 121/65 96 Room Air 11/04/22 07:39 36.6 C 77 18 112/66 95 Room Air 11/04/22 07:37 76 11/04/22 03:14 36.4 C L 79 18 112/67 95 Room Air
[2022-11-04] MEDS: LOVASTATIN 20 MG TAB PO SCH (20:13)
[2022-11-05] MEDS: LEVOTHYROXINE SODIUM 100 MCG TABLET PO SCH (05:32)
[2022-11-05 07:10] LABS: Hematocrit (blood only) 35.7 % (42.0-52.0); Hemoglobin 11.9 g/dl (14.0-18.0); Mean Corpuscular Hemoglobin 30.4 pg (25.0-34.0); Mean Corpuscular Hgb Conc 33.3 g/dL (32.0-36.0); Mean Corpuscular Volume 91.3 fL (80.0-100.0); Mean Platelet Volume 9.3 fL (9.4-12.4); Platelet Count 307 K/uL (130-400); RDW Coefficient of Variation 12.6 % (11.5-14.5); RDW Standard Deviation 41.7 fL (36.4-46.3); Red Blood Count 3.91 M/uL (4.70-6.10); White Blood Count 11.26 K/ul (4.8-10.8)
[2022-11-05 07:31] LABS: BUN Creatinine Ratio 16.5 (10-20); Blood Urea Nitrogen 36 mg/dl (6-23); Calcium 8.8 mg/dl (8.6-10.3); Carbon Dioxide 28 mmol/L (21-32); Chloride 101 mmol/L (98-107); Creatinine Clr Calc Pharmacy 51.6 ml/min; Est GFR (African American) 36.5 ml/min; Est GFR (Non-African American) 31.5 ml/min; Glucose 113 mg/dl (70-99(Fasting)); Phosphorus 3.4 mg/dl (2.5-4.9)
[2022-11-05 08:31] LABS: Magnesium 1.5 mg/dl (1.7-2.4); Potassium 4.3 mmol/L (3.5-5.1)
[2022-11-05] MEDS ORDERED: FUROSEMIDE 20 MG TAB PO SCH (09:00)
[2022-11-05] MEDS: PREGABALIN 75 MG CAP PO SCH ×2 (09:14→14:41)
[2022-11-05] MEDS: INSULIN ASPART PER UNIT CHARGE SC SCH ×3 (09:14→17:39)
[2022-11-05] MEDS: AMMONIUM LACTATE 12% LOTION 225 GM BTL EXT SCH (09:18)
[2022-11-05] MEDS: DULoxetine HCL 60 MG CAP PO SCH (09:18)
[2022-11-05] MEDS: APIXABAN 5 MG TABLET PO SCH (09:18)
[2022-11-05] MEDS: ADVANCED PROBIOTIC 1250 MG CAPSULE PO SCH (09:19)
[2022-11-05] MEDS: FLUTICASONE/VILANTEROL 200/25MCG 14 PUFFS/INHALER INH SCH (09:19)
[2022-11-05] MEDS: PANTOprazole 40 MG TAB PO SCH (09:19)
[2022-11-05] MEDS: METOPROLOL SUCC 50MG EXT REL TAB PO SCH (09:19)
[2022-11-05] MEDS: MAGNESIUM OXIDE 400 MG TAB PO SCH (09:19)
[2022-11-05] MEDS: MAGNESIUM SULFATE / D5W 1 GM/100 ML BAG IV SCH ×2 (12:48→14:36)
--- NOTE | 2022-11-05 12:49 | Discharge Summary ---
Date of Service November 05, 2022 Admission HPI Per Admitting Provider This is a 62-year-old male who has significant past medical history of atrial fibrillation anticoagulated on Eliquis, obstructive sleep apnea, asthma, HTN, hyperlipidemia, CKD stage III, chronic back and neck pain, idiopathic peripheral neuropathy, morbid obesity who presents to ED secondary to lower extremity swelling. He complains of worsening swelling to feet. He was recently hospitalized at [facility] due to Yersinia Enterocolitis. He felt that he was getting a lot of IVF and IV antibiotics as well. He completed antibiotic course. He was discharged on Monday. When they discharged him he could barely g et his shoes on. Swelling is a little worse on the left, but right is about the same if not reduced. He has been keeping them elevated. Since discharge he has been mostly sedentary and keeping legs elevated. He does have redness to L foot and big toe that he feels is worse and warm but no pain. Pt denies f/c/s, sore throat, SOB at rest, n/v/d, abd pain, change urinary habits. He continues to have generalized abd pain and diarrhea but much improved since hospitalization. He has chronic cough, daily chest pain due to afib, chronic MARLOW, easy fatigue which is normal for him. He follows with a precast concrete products installer at [facility]. He denies prior hx of heart failure. During recent hospitalization he had JUD and therefore his HCTZ and lisinopril and metformin was stopped. He was started on amlodipine. Previous hx of marijuana smoking, but has had for 3 months. He is a former smoker and denies alcohol use. Typically walks with a cane. In ED patient remained hemodynamically stable. Lab work was notable for WBC 13.13 K, H&H 12.3 and 37.7, platelet 363, BUN 38, creatinine 2.38, glucose 112, mag 1.2, BNP 139 and lipase at 260. Chest x-ray was negative for any acute pulmonary disease and urinalysis was negative except for trace protein. Admission Exam Per Admitting Provider GENERAL: Alert and oriented x3. NAD, on RA. HEENT: No pallor, no icterus. Pupils equal, round and reactive to light. Oral mucosa moist. NECK: No JVD, no neck masses. HEART: S1 and S2 heard. Regular rate and rhythm. No murmur, no gallop. RESPIRATORY SYSTEM: Normal AP diameter. No accessory muscle use. No wheezing, bibasilar crackles. ABDOMEN: Soft, bowel sounds present,nontender, no distention. CENTRAL NERVOUS SYSTEM: No facial droop. Speech is clear. Obeys simple commands. Moves extremities. EXTREMITIES: RLE 2+ pitting edema, LLE 2+ pitting edema with some erythema over left foot/no tenderness or warmth noted. Principal Diagnosis LE edema Discharge Exam GENERAL: Alert and oriented x3. NAD, on RA. HEENT: No pallor, no icterus. Pupils equal, round and reactive to light. Oral mucosa moist. NECK: No JVD, no neck masses. HEART: S1 and S2 heard. Regular rate and rhythm. No murmur, no gallop. RESPIRATORY: Normal AP diameter. No accessory muscle use. No wheezing, bibasilar crackles. ABDOMEN: Soft, bowel sounds present,nontender, no distention, obese NEURO: No facial droop. Speech is clear. Obeys simple commands. Moves extremities. EXTREMITIES: trace LE edema, 1+ pedal edema with some erythema over left foot/no tenderness or warmth noted - erythema improved. Discharge Data Allergies Allergy/AdvReac Type Severity Reaction Status Date / Time codeine Allergy Severe Anaphylaxis Verified 11/03/22 18:07 (per pt, tolerates percocet/morphone) Consultations 11/03/22 18:00 ED Decision to Admit Stat 11/03/22 20:19 Consult Cardiology Routine Ordered Studies 11/03/22 19:44 US venous doppler LE BI Routine FINDINGS: There is normal compressibility, flow, and augmentation within the bilateral lower extremity deep venous systems. Small bilateral popliteal cysts are noted. IMPRESSION: No DVT within the right or left lower extremity. Hospital Course (1) Bilateral edema of lower extremity: (2) Acute kidney injury superimposed on chronic kidney disease: (3) Hypomagnesemia: (4) Obstructive sleep apnea: Plan This is a 62-year-old male who has significant past medical history of atrial fibrillation anticoagulated on Eliquis, obstructive sleep apnea, asthma, HTN, hyperlipidemia, CKD stage III, chronic back and neck pain, idiopathic peripheral neuropathy, morbid obesity who presents to ED secondary to lower extremity swelling. He complains of worsening swelling to feet. Of significance patient recently hospitalized for 2-1/2 weeks at [facility] secondary to Yersinia enterocolitis. He completed course of IV antibiotics. During hospital stay he had notable acute on chronic CKD with creatinine greater than 2.5. Due to this his metformin, HCTZ and lisinopril were discontinued. He was placed on amlodipine. He was discharged on 10/31 and presents now due to continued lower extremity swelling, slightly worse on the left. Bilateral lower extremity swelling Acute on chronic CKD stage III, baseline 1.5-1.6 Likely acute diastolic HF Admitted to telemetry, echo reviewed, BNP elevated. Doppler LE negative for DVT. Placed on Lasix 20 mg IV daily initially, cardio evaled, appreciate recs. Lower extremity swelling may be iatrogenic in setting of fluid administration during recent hospitalization, likely multifactorial Edema may also be in setting of recent addition of amlodipine, on background of undiagnosed HF. Monitor renal fxn, dc amlodipine, resume lisinopril on DC pending renal improvement. Avoid nephrotoxins, LLE erythema has improved significantly without any antibiotic, closely follow. 11/05/22 - Plan to DC on 20 mg PO lasix (as per cardiology). LE edema significantly improved. Cr not quite back to baseline yet, therefore will not resume lisinopril yet. Pt to follow up w/ PCP on 11/08. Recommend blood work - BMP, at the next PCP appointment. Recent Yersinia enterocolitis Finished IV antibiotics Still with mild diffuse abdominal pain, and bowel habits still not back to normal --> improving gradually per pt. c/w probiotic and monitor Hypomagnesemia: Monitor and replete. Cont. supplement. Chronic Afib continue metoprolol and eliquis rate controlled HTN continue metoprolol, lasix DC amlod, resume lisinopril pending renal improvement. T2DM Current A1c 6.8% - hold home meds while inpt - novolog per protocol HLD continue statin ANGEL LUIS on CPAP Asthma - continue home inhalers, no acute exac Morbid obesity, BMI 40.8 - encourage diet/lifestyle modifications Total Time Total Time Spent Total Time Spent (In Minutes): 40 Discharge Plan Discharge Items Patient Disposition: Home - Self-Care Reason For Visit: EDEMA Discharge Diagnosis: LE edema Activity: Per Instructions section Non-emergency contact: Primary Care Provider Call non-emergency contact if: you have any medication questions and your symptoms worsen Follow-up/Referrals: Efrain Sanchez D.O. [Primary Care Provider] - Diet: Carb Consistent or DM2, Heart Healthy and Low Sodium (2gm) Addtl Attending Provider Instructions: Follow-up with your primary care physician, on November 08. Take Lasix (furosemide) 20 mg daily. Monitor your blood pressure and discuss with your primary care physician how your blood pressure medications should be further adjusted. Do not take amlodipine, as this can contribute to lower extremity edema. For now, do not take hydrochlorothiazide or lisinopril. Have a blood work done with your primary care physician, BRITNEY, to check your kidney function, and discuss further your blood pressure medications. Continue taking your metoprolol. Continue taking magnesium supplement. Pending Studies at Discharge: No Stand-Alone Forms: My [facility] [employer], Smoking Cessation Medications and DC Order Prescriptions: New furosemide 20 mg Tablet 20 mg PO QAM Qty: 7 0RF Advanced Probiotic 625 mg (10 billion cell) Capsule 2 cap PO DAILY Qty: 10 0RF Continued duloxetine 60 mg capsule,delayed release(DR/EC) 60 mg PO BID Qty: 180 1RF Eliquis 5 mg tablet 5 mg PO BID Qty: 60 11RF (DME) Mobility scooter Bariatric Qty: 1 0RF Rx Instructions: Use As Directed Dx codes: G62.9, G89.21, M54.16, R26.2 pantoprazole 40 mg tablet,delayed release (DR/EC) 40 mg PO BID Qty: 180 1RF pregabalin 75 mg capsule 75 mg PO TID metoprolol succinate 50 mg tablet extended release 24 hr 50 mg PO BID glipizide 2.5 mg tablet extended release 24hr 2.5 mg PO DAILY lovastatin 40 mg tablet 40 mg PO HS Patient Comments: QHS levothyroxine 100 mcg tablet 100 mcg PO DAILYBB Patient Comments: QAM fluticasone propion-salmeterol [Advair HFA] 115-21 mcg/actuation HFA aerosol inhaler 2 puff INHALATION BID albuterol sulfate 90 mcg/actuation HFA aerosol inhaler 2 puff INHALATION QID PRN (Reason: Wheezing) Discontinued amlodipine 5 mg tablet 5 mg PO QAM Discharge Orders: Discharge Order (Routine); Ordered 11/05/22 Ordered By: Gustavo Cohn Admission Data Admit Date/Time: 11/03/22 18:14 Attending Provider: Gustavo Cohn Admit Provider: Amador Valdez Primary Care Provider: Efrain Sanchez Other Providers: Amador Valdez ; Tc Mckenna
== END 2022-11-05 17:10 | disposition home or self-care (01) | DRG 291 ==
LOC: ED 15:48 → SUATTDRO 18:14 → 2N 18:14